=== PATIENT | male | born 1975 | race Hispanic/Latino ===

== ENCOUNTER 2018-05-17 10:51 | Emergency (ER) | payer OTHER ==
--- OUTSIDE RECORDS SUMMARY | 2018-05-17 10:53 | XMS REPORT | Continuity of Care Document ---
:1975 Author Organization Interface Problems Problem Status Onset Classification Date Comments Source Date Reported RADICULOPATHY Active 08/18/19 [place] CERVICAL 17 Land REGION-M54.12/ NECK PAIN-M54.2 M54.12 - Active 04/23/20 [facility] "RADICULOPATHY, 16 SG Bone & CERVICAL REGION Joint GERD (<span Resolved Problem 08/29/2016 [place] ID="[id number]" [place] >Confirmed</span> ) Pain<sup>1</sup> Active Problem 08/29/2016 neck and [place] back [place] Medications Medication Details Route Status Patient Ordering Order Source Instructions Provider Date Acetaminophen 325 2 tab, PO, Q6H, Active MG / Hydrocodone PRN Pain Score 2016 [place] Bitartrate 10 MG 7-10, 0 Refill(s) [place] Oral Tablet [[place] 10/325] Oxycontin 10 mg, 1 tab, No Longer Route: PO, Drug Active 2016 [place] form: ERTAB, Q12H, [place] Dosing Weight 76.364, kg, Start date: 08/25/16 21:00:00 LABELLING MACHINE OPERATOR, Duration: 30 day, Stop date: 09/24/16 9:00:00 CDTNotes: Do not crush or chew. (Same as: OxyContin) Ancef + sodium 1 gm, Route: IVPB, No Longer chloride 0.9% INJ Q8H, Dosing Weight Active 2016 [place] 100 mL 76.364, kg, Start [place] date: 08/25/16 16:00:00 LABELLING MACHINE OPERATOR, Duration: 30 day, Stop date: 09/24/16 8:00:00 CDTNotes: (Same As: Anczehra Kefzol) MEDICATION WASTE Product Size: 1000 mg Product Wasted: ___ mg pneumococcal 0.5 mL, Route: IM, Inactive capsular ONCALL, Start 2016 [place] polysaccharide date: 08/25/16 [facility] type 1 vaccine / 14:53:28 LABELLING MACHINE OPERATOR, Stop pneumococcal date: 09/24/16 capsular 14:48:28 CDT polysaccharide type 10A vaccine / pneumococcal capsular polysaccharide type 11A vaccine / pneumococcal capsular polysaccharide type 12F vaccine / pneumococcal capsular polysacchar Insulin, Aspart, 4 unit, 0.04 mL, Inactive Human Route: SUB-Q, Drug 2016 [place] form: SOLN, [place] Sliding Scale, Dosing Weight 76.364, kg, PRN Blood Glucose Results, Start date: 08/25/16 10:16:00 LABELLING MACHINE OPERATOR, Duration: 30 day, Stop date: 09/24/16 11:15:00 CDTNotes: Roll in palms of hands gently; Do not shake vigorously. (Same as: NovoLOG) "single patient use only" WASTE: F/P - Black; E - Municipal Trash Bin Stable for 28 days at room temperature. Expires in days from Date Phenylephrine 100 microgram, 1 Inactive mL, Route: IV, 2016 [place] Drug form: INJ, [place] Q5Min, Dosing Weight 77.273, kg, PRN Hypotension, Start date: 08/25/16 10:16:00 LABELLING MACHINE OPERATOR, Duration: 30 day, Stop date: 09/24/16 11:15:00 CDTNotes: Same as: Perez-Synephrine Albuterol 0.833 3 mL, Route: NEB, Inactive MG/ML / Drug Form: SOLN, 2016 [place] Ipratropium Dosing Weight [place] 0.167 77.273, kg, MG/ML Inhalant Q20Min, PRN Solution [DuoNeb] Wheezing, call anesthesiologist if wheezing unresolved after 2nd dose., Start date: 08/25/16 10:16:00 LABELLING MACHINE OPERATOR, Duration: 4 doses or times, Stop date: Limited # of timesNotes: (Same as: Duoneb) celecoxib 200 mg, 1 cap, Inactive Route: PO, Drug 2016 [place] form: CAP, ONCE, [place] Dosing Weight 77.273, kg, Start date: 08/25/16 10:16:00 LABELLING MACHINE OPERATOR, Stop date: 08/25/16 10:16:00 CSTNotes: NSAID. Please check indication. Not for seizure. (Same As: CeleBREX) Promethazine 6.25 mg, 0.25 mL, Inactive Route: IM, Drug 2016 [place] form: INJ, ONCE, [place] Dosing Weight 77.273, kg, PRN Nausea & Vomiting, Start date: 08/25/16 10:16:00 CSTNotes: Do not give IV push. (Same as: Phenergan) 72 HR Scopolamine 1 patch, Route: Inactive 0.0139 MG/HR TOP, Drug Form: 2016 [place] Transdermal Patch ERFILM, Dosing [place] Weight 77.273, kg, ONCE, Apply behind ear. Avoid use in elderly., Start date: 08/25/16 10:16:00 LABELLING MACHINE OPERATOR, Stop date: 08/25/16 10:16:00 CSTNotes: Change patch every 72 hours (Same as: Transderm-Scop) Midazolam 1 mg, 1 mL, Route: Inactive IVP, Drug form: 2016 [place] INJ, Q5Min, Dosing [place] Weight 76.364, kg, PRN Anxiety, Start date: 08/25/16 10:16:00 LABELLING MACHINE OPERATOR, Duration: 2 doses or times, Stop date: Limited # of timesNotes: (Same as: Versed) MEDICATION WASTE Product Size: 2 mg Product Wasted: ___ mg Naloxone 0.1 mg, 0.25 mL, Inactive Route: SUB-Q, Drug 2016 [place] form: INJ, Q6H, [place] Dosing Weight 76.364, kg, PRN Itching, Start date: 08/25/16 10:16:00 LABELLING MACHINE OPERATOR, Duration: 30 day, Stop date: 09/24/16 10:15:00 CDTNotes: Same as Narcan Ondansetron 4 mg, 2 mL, Route: Inactive IVP, Drug form: 2016 [place] INJ, ONCE, Dosing [place] Weight 76.364, kg, PRN Nausea & Vomiting, Start date: 08/25/16 10:16:00 CSTNotes: (Same as: Zofran) MEDICATION WASTE Product Size: 4 mg Product Wasted: ___ mg Dexamethasone 4 mg, 1 mL, Route: Inactive IVP, Drug form: 2016 [place] INJ, ONCE, Dosing [place] Weight 76.364, kg, PRN Nausea & Vomiting, Start date: 08/25/16 10:16:00 CSTNotes: Concentration: 4mg/ml Atropine 0.2 mg, 0.5 mL, Inactive Route: IVP, Drug 2016 [place] form: INJ, Q5Min, [place] Dosing Weight 76.364, kg, PRN Other -See Comment, as needed; for symptomatic pulse rate Notes: MEDICATION WASTE Product Size: 0.4 mg Product Wasted: ___ mg Diphenhydramine 12.5 mg, 0.25 mL, Inactive Route: IVP, Drug 2016 [place] form: INJ, Q6H, [place] Dosing Weight 77.273, kg, PRN Itching, Start date: 08/25/16 10:16:00 LABELLING MACHINE OPERATOR, Duration: 1 day, Stop date: 08/26/16 10:15:00 CSTNotes: (Same as: Benadryl) Albuterol 0.83 2.49 mg, 3 mL, Inactive MG/ML Inhalant Route: NEB, Drug 2016 [place] Solution form: SOLN, [place] Q20Min, Dosing Weight 76.364, kg, PRN Wheezing, Priority: STAT, Start date: 08/25/16 10:16:00 LABELLING MACHINE OPERATOR, Duration: 30 day, Stop date: 09/24/16 11:15:00 CDTNotes: SEE RT DOCUMENTATION (Same as: Proventil) Glycopyrrolate 0.2 mg, 1 mL, Inactive Route: IVP, Drug 2016 [place] form: INJ, Q5Min, [place] Dosing Weight 76.364, kg, PRN Bradycardia, Start date: 08/25/16 10:16:00 LABELLING MACHINE OPERATOR, Duration: 3 doses or times, Stop date: Limited # of timesNotes: (Same as: Azael) Ephedrine 5 mg, 1 mL, Route: Inactive IVP, Drug form: 2017 [place] INJ, Q5Min, Dosing [place] Weight 76.364, kg, PRN Low Blood Pressure, Start date: 08/25/16 10:16:00 LABELLING MACHINE OPERATOR, Duration: 30 day, Stop date: 09/24/16 11:15:00 CDTNotes: final concentration 5 mg/mL Flumazenil 0.2 mg, 2 mL, Inactive Route: IVP, Drug 2016 [place] form: INJ, PRN, [place] Dosing Weight 76.364, kg, PRN Benzodiazepine Reversal, Initial dose, Start date: 08/25/16 10:16:00 LABELLING MACHINE OPERATOR, Duration: 30 day, Stop date: 09/24/16 11:15:00 CDTNotes: (Same as: Romazicon) Hydromorphone 0.5 mg, 0.25 mL, Inactive Route: IVP, Drug 2016 [place] form: INJ, Q5Min, [place] Dosing Weight 77.273, kg, PRN Pain Score 7-10, Start date: 08/25/16 10:16:00 LABELLING MACHINE OPERATOR, Duration: 4 doses or times, Stop date: Limited # of timesNotes: Same as Dilaudid 200 ACTUAT 2 puff, Route: Inactive Albuterol 0.09 INHALER, Drug 2016 [place] MG/ACTUAT Metered Form: AERO/A, [place] Dose Inhaler Dosing Weight 76.364, kg, Q5Min, PRN Wheezing, Start date: 08/25/16 10:16:00 LABELLING MACHINE OPERATOR, Duration: 4 doses or times, Stop date: Limited # of timesNotes: Albuterol 90 microgram/inh 8gm HFA WASTE: Aerosol - Return to Pharmacy Same as: Sera Max Calcium Chloride 1,000 mL, Rate: Inactive 0.0014 MEQ/ML / 125 ml/hr, Infuse 2016 [place] Potassium over: 8 hr, Route: [place] Chloride 0.004 IV, Dosing Weight MEQ/ML / Sodium 76.364 kg, Total Chloride 0.103 Volume: 1,000, MEQ/ML / Sodium Start date: Lactate 0.028 08/25/16 10:16:00 MEQ/ML Injectable LABELLING MACHINE OPERATOR, Duration: 30 Solution day, Stop date: 09/24/16 10:15:00 CDT Oxycodone 10 mg, 2 tab, Inactive Route: PO, Drug 2016 [place] form: TAB, ONCE, [place] Dosing Weight 77.273, kg, PRN Pain Score 7-10, Start date: 08/25/16 10:16:00 CSTNotes: (Same as: Roxicodone) Morphine 2 mg, 1 mL, Route: Inactive IVP, Drug form: 2017 [place] INJ, Q5Min, Dosing [place] Weight 76.364, kg, PRN Pain Score 4-6, Start date: 08/25/16 10:16:00 LABELLING MACHINE OPERATOR, Duration: 5 doses or times, Stop date: Limited # of timesNotes: (Same as:MORPhine Sulfate) Acetaminophen 1,000 mg, 2 tab, Inactive Route: PO, Drug 2016 [place] form: TAB, ONCE, [place] Dosing Weight 76.364, kg, PRN Pain Score 1-3, Start date: 08/25/16 10:16:00 LABELLING MACHINE OPERATOR, Duration: 1 doses or times, Stop date: Limited # of timesNotes: Max acetaminophen 4000 mg/day (4 gm/day). (Same as: Tylenol Extra Strength) Hydralazine 10 mg, 0.5 mL, Inactive Route: IVP, Drug 2016 [place] form: INJ, Q20Min, [place] Dosing Weight 77.273, kg, PRN Elevated BP, Start date: 08/25/16 10:16:00 LABELLING MACHINE OPERATOR, Duration: 2 doses or times, Stop date: Limited # of timesNotes: (Same as: Apresoline) Push over 5 minutes Labetalol 10 mg, 2 mL, Inactive Route: IVP, Drug 2016 [place] form: INJ, Q5Min, [place] Dosing Weight 77.273, kg, PRN Elevated BP, Start date: 08/25/16 10:16:00 LABELLING MACHINE OPERATOR, Duration: 5 doses or times, Stop date: Limited # of timesNotes: (Same as: Normodyne, Trandate) Push over 2 minutes Give bolus over 2-3 minutes. Metoprolol 1 mg, 1 mL, Route: Inactive IVP, Drug form: 2016 [place] INJ, Q5Min, Dosing [place] Weight 77.273, kg, PRN Other -See Comment, Start date: 08/25/16 10:16:00 LABELLING MACHINE OPERATOR, Duration: 5 doses or times, Stop date: Limited # of timesNotes: (Same as: Lopressor) Push over 2 minutes ondansetron Route: IV, Drug Inactive (ANES) form: INJ, ONCE, 2017 [place] Stop date: Land 08/25/16 10:15:00 LABELLING MACHINE OPERATOR Acetaminophen 325 2 tab, Route: PO, No Longer MG / Hydrocodone Drug Form: TAB, Active 2016 [place] Bitartrate 10 MG Dosing Weight [place] Oral Tablet 76.364, kg, Q6H, [[place] 10/325] PRN Pain Score 7-10, Start date: 08/25/16 10:08:00 LABELLING MACHINE OPERATOR, Duration: 30 day, Stop date: 09/24/16 10:07:00 CDTNotes: Do not exceed 4gm/day of acetaminophen. (Same as: [place] 325/10) Zofran 4 mg, 2 mL, Route: No Longer IVP, Drug form: Active 2016 [place] INJ, Q6H, Dosing [place] Weight 76.364, kg, PRN Nausea, Start date: 08/25/16 10:07:00 LABELLING MACHINE OPERATOR, Duration: 30 day, Stop date: 09/24/16 10:06:00 CDTNotes: (Same as: Zofran) MEDICATION WASTE Product Size: 4 mg Product Wasted: ___ mg Tylenol 650 mg, 2 tab, No Longer Route: PO, Drug Active 2016 [place] form: TAB, Q6H, [place] Dosing Weight 76.364, kg, PRN For Temp > 101 F, Start date: 08/25/16 10:06:00 LABELLING MACHINE OPERATOR, Duration: 30 day, Stop date: 09/24/16 10:05:00 CDTNotes: Do not exceed 4 gm/day. (Same as: Tylenol) Morphine 2 mg, 1 mL, Route: No Longer IVP, Drug form: Active 2016 [place] INJ, Q2H, Dosing [place] Weight 76.364, kg, PRN Pain Score 7-10, Start date: 08/25/16 10:06:00 LABELLING MACHINE OPERATOR, Duration: 30 day, Stop date: 09/24/16 10:05:00 CDTNotes: (Same as:MORPhine Sulfate) succinylcholine Route: IV, Drug Inactive (ANES) form: INJ, ONCE, 2016 [place] Stop date: 08/25/16 9:02:00 LABELLING MACHINE OPERATOR midazolam (ANES) Route: IV, Drug Inactive form: SOLN, ONCE, 2016 [place] Stop date: Land 08/25/16 9:02:00 LABELLING MACHINE OPERATOR fentaNYL (ANES) Route: IV, Drug Inactive 08/25/ MH form: INJ, ONCE, 2016 [place] Stop date: 08/25/16 9:02:00 LABELLING MACHINE OPERATOR dexamethasone Route: IV, Drug Inactive 08/25/ MH (ANES) form: INJ, ONCE, 2016 [place] Stop date: [facility] 08/25/16 9:02:00 LABELLING MACHINE OPERATOR hydromorphone Route: IV, Drug Inactive 08/25/ MH (ANES) form: INJ, ONCE, 2016 [place] Stop date: [facility] 08/25/16 8:57:00 LABELLING MACHINE OPERATOR propofol (ANES) Route: IV, Drug Inactive 08/25/ MH form: INJ, ONCE, 2016 [place] Stop date: [facility] 08/25/16 8:57:00 LABELLING MACHINE OPERATOR lidocaine (ANES) Route: IV, Drug Inactive 08/25/ MH form: INJ, ONCE, 2016 [place] Stop date: [facility] 08/25/16 8:57:00 LABELLING MACHINE OPERATOR ceFAZolin (ANES) Route: IV, Drug Inactive 08/25/ MH form: INJ, ONCE, 2016 [place] Stop date: [facility] 08/25/16 8:19:00 LABELLING MACHINE OPERATOR propofol (ANES) Route: IV, Drug Inactive 08/25/ MH (ANES) form: INJ, Start 2016 [place] date: 08/25/16 [facility] 8:15:00 LABELLING MACHINE OPERATOR, Stop date: 08/25/16 9:15:00 LABELLING MACHINE OPERATOR Cephalexin 500 MG 500 mg=1 cap, PO, Active Oral Capsule QID, X 5 day, # 20 2017 [place] [Keflex] cap, 0 Refill(s) [place] Carisoprodol 350 350 mg=1 tab, PO, Active MH MG Oral Tablet TID, X 14 day, # 2017 [place] [Soma] 42 tab, 0 [place] Refill(s) LR 1000 mL INJ Route: IV, Total Inactive MH (ANES) Volume: 1,000, 2016 [place] Start date: [facility] 08/25/16 7:45:00 LABELLING MACHINE OPERATOR, Stop date: 08/25/16 8:45:00 LABELLING MACHINE OPERATOR Insulin, Aspart, 2 unit, 0.02 mL, Inactive Human Route: SUB-Q, Drug 2016 [place] form: SOLN, [place] Sliding Scale, Dosing Weight 77.273, kg, PRN Blood Glucose Results, Start date: 08/25/16 6:10:00 LABELLING MACHINE OPERATOR, Duration: 30 day, Stop date: 09/24/16 7:09:00 CDTNotes: Roll in palms of hands gently; Do not shake vigorously. (Same as: NovoLOG) "single patient use only" WASTE: F/P - Black; E - Municipal Trash Bin Stable for 28 days at room temperature. Expires in days from Date Albuterol 0.833 3 mL, Route: NEB, Inactive MG/ML / Drug Form: SOLN, 2017 [place] Ipratropium Dosing Weight [place] 0.167 77.273, kg, ONCE, MG/ML Inhalant PRN Wheezing, Solution Start date: 08/25/16 6:10:00 CSTNotes: (Same as: Joaquin) 200 ACTUAT 2 puff, Route: Inactive Albuterol 0.09 INHALER, Drug 2017 [place] MG/ACTUAT Metered Form: AERO/A, [place] Dose Inhaler Dosing Weight 76.364, kg, Q5Min, PRN Wheezing, Start date: 08/25/16 6:10:00 LABELLING MACHINE OPERATOR, Duration: 4 doses or times, Stop date: Limited # of timesNotes: Albuterol 90 microgram/inh 8gm HFA WASTE: Aerosol - Return to Pharmacy Same as: Ventleila Proventil Calcium Chloride 1,000 mL, Rate: 25 Inactive 0.0014 MEQ/ML / ml/hr, Infuse 2016 [place] Potassium over: 40 hr, [place] Chloride 0.004 Route: IV, Dosing MEQ/ML / Sodium Weight 76.364 kg, Chloride 0.103 Total Volume: MEQ/ML / Sodium 1,000, Start date: Lactate 0.028 08/25/16 6:10:00 MEQ/ML Injectable LABELLING MACHINE OPERATOR, Duration: 30 Solution day, Stop date: 09/24/16 6:09:00 CDT Lactated Ringers 1,000 mL, Rate: No Longer 1,000 mL 125 ml/hr, Infuse Active 2016 [place] over: 8 hr, Route: [place] IV, Dosing Weight 77.273 kg, Total Volume: 1,000, Start date: 08/25/16 6:00:00 LABELLING MACHINE OPERATOR, Duration: 30 day, Stop date: 09/24/16 5:59:00 CDT ceFAZolin 2 gm, 100 mL, Inactive Route: IVPB, Drug 2016 [place] form: INJ, ONCALL, Land Start date: 08/25/16 6:00:00 LABELLING MACHINE OPERATOR, Duration: 1 doses or timesNotes: Same as: Ancef oxyCONTIN 10 mg, 1 tab, No Longer Route: PO, Drug Active 2016 [place] form: ERTAB, Land ONCALL, Start date: 08/25/16 6:00:00 LABELLING MACHINE OPERATOR, Duration: 1 doses or timesNotes: Do not crush or chew. (Same as: OxyContin) Neurontin 600 mg, 2 cap, Inactive Route: PO, Drug 2016 [place] form: CAP, ONCALL, Land Start date: 08/25/16 6:00:00 LABELLING MACHINE OPERATOR, Duration: 1 doses or timesNotes: (Same as: Neurontin) Acetaminophen 325 1 tab, PO, Q4H, Active MG / Hydrocodone PRN Pain, # 30 2017 [place] Bitartrate 10 MG tab, 0 Refill(s) [place] Oral Tablet Omeprazole 20 MG See Instructions, Active Enteric Coated 1 cap PO Daily 2017 [place] Capsule prn, 0 Refill(s) [place] [Prilosec] gabapentin 300 MG 300 mg=1 cap, PO, Active Oral Capsule BID, # 90 cap, 1 2016 [place] Refill(s) [place] diclofenac sodium 75 mg=1 tab, PO, Active 75 mg oral Daily, q hs, # 180 2017 [place] enteric coated, tab, 0 Refill(s) [place] delayed-release tablet Allergies, Adverse Reactions, Alerts Substance Category Reaction Severity Reaction Status Date Comments Source type Reported traMADol<albert Assertion Drug Active [facility] p>1</sup> allergy racing [place] Immunizations Immunization Date Given Site Status Last Comments Source Updated pneumococcal 08/25/2016 Left Deltoid completed Tobin [place] 23-valent vaccine [place] Results Order Name Results Value Reference Date Interpretation Comments Source Range ELECTROLYTE AGAP 11.9 meq/L 10.0 - 08/26 S 20.0 [place] ELECTROLYTE Calcium Lvl 8.3 mg/dL 8.5 - 10.5 08/26 S [place] ELECTROLYTE Sodium Lvl 143 meq/L 135 - 145 08/26 S [place] ELECTROLYTE BUN 16 mg/dL 7 - 22 08/26 S [place] ELECTROLYTE Creatinine 1.14 mg/dL 0.50 - 08/26 MH S Lvl 1.40 /2016 [place] ELECTROLYTE CO2 31 meq/L 24 - 32 08/26 S [place] ELECTROLYTE Glucose Lvl 117 mg/dL 70 - 99 08/26 S [place] ELECTROLYTE eGFR 79 08/26 Result Comment: The eGFR is calculated using the CKD-EPI formula. In most young, healthy individuals the eGFR will be >90 mL/ min/1.73m2. The eGFR declines with age. An eGFR of 60-89 may be normal in mL/min/1.73 /2016 some populations, particularly the elderly, for whom the CKD-EPI formula has not been extensively validated. Use of the eGFR is not recommended in the following populations: [place] m2 [place] Individuals with unstable creatinine concentrations, including patients and those with serious co-morbid conditions. Patients with extremes in muscle mass or diet. The data above are obtained from the National Kidney Disease Education Program (NKDEP) which additionally recommends that when the eGFR is used in patients with extremes of body mass index for purposes of drug dosing, the eGFR should be multiplied by the estimated BMI. ELECTROLYTE Chloride Lvl 104 meq/L 95 - 109 08/26 S [place] ELECTROLYTE Potassium 3.9 meq/L 3.5 - 5.1 08/26 S Lvl [place] HEMATOLOGY Basophils # 0.0 K/CMM 0.0 - 0.2 08/26 [place] HEMATOLOGY Eosinophils 0.0 K/CMM 0.0 - 0.5 / MH # /2017 [place] HEMATOLOGY Monocytes # 1.5 K/CMM 0.0 - 0.8 08/26 [place] HEMATOLOGY Basophils 0.2 % 0.0 - 1.0 08/26 [place] HEMATOLOGY Lymphocytes 1.9 K/CMM 1.0 - 5.5 / MH # /2017 [place] HEMATOLOGY Segs-Bands # 12.2 K/CMM 1.5 - 8.1 08/26 [place] HEMATOLOGY Monocytes 9.8 % 2.0 - 12.0 / /2016 [place] HEMATOLOGY Eosinophils 0.1 % 0.0 - 4.0 / /2016 [place] HEMATOLOGY Lymphocytes 12.0 % 20.0 - 08/26 MH 40.0 /2016 [place] HEMATOLOGY Segs 77.9 % 45.0 - 08/26 MH 75.0 /2016 [place] HEMATOLOGY MCH 27.0 pg 27.0 - 08/26 MH 31.0 /2016 [place] HEMATOLOGY MCV 82.5 fL 80.0 - 08/26 MH 94.0 /2016 [place] HEMATOLOGY MCHC 32.7 g/dL 32.0 - 08/26 MH 36.0 /2016 [place] HEMATOLOGY Hct 40.2 % 42.0 - 08/26 MH 54.0 /2016 [place] HEMATOLOGY RDW 13.8 % 11.5 - 08/26 MH 14.5 /2016 [place] HEMATOLOGY Platelet 210 K/CMM 133 - 450 08/26 [place] HEMATOLOGY MPV 9.3 fL 7.4 - 10.4 08/26 [place] HEMATOLOGY Hgb 13.1 g/dL 14.0 - 08/26 MH 18.0 [place] HEMATOLOGY RBC 4.87 M/CMM 4.70 - 08/26 MH 6.10 /2016 [place] HEMATOLOGY WBC 15.6 K/CMM 3.7 - 10.4 08/26 [place] Fluoroscopy Fluoroscopy No report is required for this exam. 08/25 - assist to 1 assist to - [place] hour DX hour DX Technical component complete. [facility] Electronically Signed by: Kanchan Gautam RT 08/26/16 09:20 FINAL REPORT BLOOD BANK Antibody Negative 08/18 RESULTS Scr [place] (08/18/16 10:32 AM) [facility] BLOOD BANK ABO/Rh O POS 08/18 RESULTS /2016 [place] HEMATOLOGY Segs 62.1 % 45.0 - 08/18 MH 75.0 [place] HEMATOLOGY Lymphocytes 24.4 % 20.0 - 08/18 MH 40.0 [place] HEMATOLOGY Basophils 0.4 % 0.0 - 1.0 08/18 [place] HEMATOLOGY Eosinophils 4.9 % 0.0 - 4.0 08/18 [place] HEMATOLOGY Monocytes 8.2 % 2.0 - 12.0 08/18 [place] HEMATOLOGY Monocytes # 0.8 K/CMM 0.0 - 0.8 08/18 [place] HEMATOLOGY Lymphocytes 2.4 K/CMM 1.0 - 5.5 08/18 MH # [place] HEMATOLOGY Segs-Bands # 6.0 K/CMM 1.5 - 8.1 08/18 [place] HEMATOLOGY Basophils # 0.0 K/CMM 0.0 - 0.2 08/18 [place] HEMATOLOGY Eosinophils 0.5 K/CMM 0.0 - 0.5 08/18 MH # /2016 [place] HEMATOLOGY RBC 5.10 M/CMM 4.70 - 08/18 MH 6.10 /2016 [place] HEMATOLOGY WBC 9.7 K/CMM 3.7 - 10.4 08/18 [place] HEMATOLOGY MCH 27.6 pg 27.0 - 08/18 MH 31.0 [place] HEMATOLOGY MCV 82.1 fL 80.0 - 08/18 MH 94.0 [place] HEMATOLOGY RDW 13.6 % 11.5 - 08/18 MH 14.5 [place] HEMATOLOGY MCHC 33.7 g/dL 32.0 - 08/18 MH 36.0 [place] HEMATOLOGY Platelet 230 K/CMM 133 - 450 08/18 [place] HEMATOLOGY MPV 9.1 fL 7.4 - 10.4 08/18 [place] HEMATOLOGY Hct 41.9 % 42.0 - 08/18 MH 54.0 [place] HEMATOLOGY Hgb 14.1 g/dL 14.0 - 08/18 MH 18.0 [place] Spine Spine MRI of the Cervical Spine Without IV Contrast 07/10 - OPID cervical wo cervical - Bone contrast contrast MRI & Joint MRI History: Right radiculopathy prior fusion Read by: Tatianna Leavitt MD Dictated Date/time: 07/10/16 14:43 Electronically Signed by: Tatianna Leavitt MD 07/10/16 14:56 FINAL REPORT Comparison study: None Technique: The study was performed on a high field magnet Without IV Contrast. Findings: There is mild reversal the cervical lordosis centered at C3-C4. C2-C3: Disc desiccation is noted without posterior disc bulge or protrusion. No central stenosis. Right neuroforamen is patent.. Moderate left facet degeneration. This causes mild left foraminal narrowing. C3-C4: Disc desiccation with mild loss of disc height. Mild posterior spondylosis with bilateral uncovertebral spurring. Moderate left facet degeneration into mild extent on the right. Spur disc complex abuts the ventral cervical cord without compression. Mild to moderate bilateral foraminal narrowing without central stenosis. C4-C5: Disc desiccation with moderate loss of disc height. Mild bilateral uncovertebral spurring and mild bilateral facet degeneration. Mild bilateral foraminal narrowing without central stenosis. C5-C6: Status post anterior interbody fusion with compression plate and screws in place. Fusion appears solid. No central or foraminal stenosis.. C6-C7: Disc desiccation with moderate loss of disc height. Moderate posterior spondylosis with more prominent right paracentrally. Bilateral uncovertebral spurring with mild bilateral facet arthrosis. S pur disc complex does compress the cervical cord especially right paracentrally. Moderate central and severe right and moderate left foraminal stenosis. C7-T1: Disc desiccation without loss of disc height. Minimal posterior central disc bulge without focal protrusion. Mild bilateral facet degeneration. No central or foraminal stenosis. There is at T2-T3 evidence of a 2 to 3 mm broad-based posterior central protrusion mildly effacing the thoracic cord without compression. There is an area of abnormal signal intensity in the central aspect of cervical cord at C3 C5-C6. There is questionable subtle extension inferiorly to C6-C7. 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 Craniocervical junction is normal. Impression: Mild reversal the cervical lordosis centered at C3-C4. Multilevel degenerative disc disease with facet arthrosis as detailed above. Postoperative changes at C5-C6 from anterior interbody fusion with compression plate and screws in place. Fusion appears solid. No central or foraminal narrowing. Disc degeneration at C6-C7 where there is moderate posterior spondylosis with bilateral uncovertebral spurring. Spondylosis is more prominent right paracentrally. Spur disc complex does compress the cer vical cord. Severe right and moderate left foraminal narrowing with moderate central stenosis. Mild posterior spondylosis with bilateral uncovertebral spurring at C3-C4 and C4-C5. Associated facet arthrosis at both levels left greater than right. Moderate bilateral foraminal narrowing at C3-C4 and on the right at C4-C5. Moderate facet degeneration also at C7-T1 where there is a mild posterior disc bulge. Moderate left facet degeneration at C2-C3. 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 Myelomalacia is also a consideration.. Dictation Code : 100 Vital Signs Vital Sign Value Date Comments Source Systolic (mm Hg) 143 08/26/2016 [place] Diastolic (mm Hg) 90 08/26/2016 [place] Heart Rate 71 08/26/2016 [place] Temperature Oral (F) 98.2 F 08/26/2016 [place] Heart Rate 74 08/26/2016 [place] Temperature Oral (F) 97.6 F 08/26/2016 [place] Systolic (mm Hg) 134 08/26/2016 [place] Diastolic (mm Hg) 88 08/26/2016 [place] Temperature Oral (F) 98.1 F 08/26/2016 [place] Heart Rate 75 08/26/2016 [place] Systolic (mm Hg) 123 08/26/2016 [place] Diastolic (mm Hg) 78 08/26/2016 [place] BMI Calculated 27.17 08/25/2016 [place] Weight 76.364 08/25/2016 [place] Height 167.64 cm 08/25/2016 [place] Respitory Rate 16 08/25/2016 [place] Respitory Rate 15 08/25/2016 [place] Respitory Rate 18 08/25/2016 [place] Weight 76.364 08/25/2016 [place] BMI Calculated 27.17 08/25/2016 [place] Height 167.64 cm 08/18/2016 [place] Encounters Location Location Encounter Encounter Reason Attending ADM DC Status Source Details Type Number For Provider Date Date Visit [facility] Outpt Diag [id number] [facility] [place] 07/10 07/11 [facility] /2016 [facility] [id number] [facility] [place] 08/25 08/26 [facility] [place] /2016 [place] Procedures Procedure Code Date Perfomer Comments Source Fusion [id number] 06/21/2004 [place] Fusion [id number] 06/21/2002 [place]
--- OUTSIDE RECORDS SUMMARY | 2018-05-17 10:54 | XMS REPORT | Summary of Care ---
:1975 Author Organization [facility] [place] Encounter Arsenio(JODI) [id number] Date(s): 07/10/16 - 07/10/16 [facility] [place] Discharge Disposition: Home or Self Care Attending Physician: Enrrique Harrison MD Vital Signs No data available for this section Problem List No data available for this section Allergies, Adverse Reactions, Alerts No data available for this section Medications No data available for this section Results No data available for this section Immunizations No data available for this section Procedures No data available for this section Social History No data available for this section Assessment and Plan No data available for this section
--- OUTSIDE RECORDS SUMMARY | 2018-05-17 10:54 | XMS REPORT | Summary of Care ---
:[address] [facility] Address [address], [place] [address]- Encounter [facility]) [id number] Date(s): 08/25/16 - 08/26/[address] [facility] [address] [place] [address]- Discharge Disposition: Home or Self Care Attending Physician: Enrrique Harrison MD Referring Physician: Enrrique Harrison MD Vital Signs Most recent to oldest 1 2 3 [Reference Range]: Height 167.64 cm 167.64 cm (08/25/16 2:01 PM) (08/18/16 10:27 AM) Temperature Oral [96.4-99.1 98.2 DegF 97.6 DegF 98.1 DegF DegF] (08/26/16 7:57 AM) (08/26/16 5:27 AM) (08/25/16 11:26 PM) Blood Pressure [90-140/60-90 143/90 mmHg 134/88 mmHg 123/78 mmHg mmHg] *HI* (08/26/16 5:27 AM) (08/25/16 11:26 PM) (08/26/16 7:57 AM) Respiratory Rate [14-20 BRMIN] 16 BRMIN 15 BRMIN 18 BRMIN (08/25/16 1:55 PM) (08/25/16 1:40 PM) (08/25/16 12:45 PM) Peripheral Pulse Rate [60-100 71 bpm 74 bpm 75 bpm bpm] (08/26/16 7:57 AM) (08/26/16 5:27 AM) (08/25/16 11:26 PM) Weight 76.364 kg 76.364 kg (08/25/16 2:01 PM) (08/25/16 6:10 AM) Body Mass Index 27.17 m2 27.17 m2 (08/25/16 2:01 PM) (08/25/16 6:10 AM) Problem List Condition Effective Dates Status Health Status Informant GERD (gastroesophageal reflux Resolved disease)(Confirmed) Pain(Confirmed)1 Active 1neck and back Allergies, Adverse Reactions, Alerts Substance Reaction Severity Status traMADol1 Active 1heart racing Medications acetaminophen-hydrocodone 325 mg-10 mg oral tablet 1 tab, PO, Q4H, PRN Pain, # 30 tab, 0 Refill(s) Start Date: 08/18/16 Stop Date: 08/23/16 Status: Orderedalbuterol 90 mcg/inh inhalation aerosol 2 puff, Route: INHALER, Drug Form: AERO/A, Dosing Weight 76.364, kg, Q5Min, PRN Wheezing, Start date: 08/25/16 6:10:00 SAMPLER OVENS, Duration: 4 doses or times, Stop date: Limited # of times Notes: Albuterol 90 microgram/inh 8gm HFAWASTE: Aerosol - Return to Pharmacy Same as: Sera Max Start Date: 08/25/16 Stop Date: 08/25/16 Status: Discontinuedalbuterol-ipratropium 2.5-0.5 mg inhalation solution 3 mL, Route: NEB, Drug Form: SOLN, Dosing Weight 77.273, kg, ONCE, PRN Wheezing , Start date: 08/25/16 6:10:00 SAMPLER OVENS Notes: (Same as: Joaquin) Start Date: 08/25/16 Stop Date: 08/25/16 Status: DiscontinuedAncef + sodium chloride 0.9% INJ 100 mL 1 gm, Route: IVPB, Q8H, Dosing Weight 76.364, kg, Start date: 08/25/16 16:00:00 SAMPLER OVENS, Duration: 30 day, Stop date: 09/24/16 8:00:00 CDT Notes: (Same As: Milad Leyva) MEDICATION WASTE Product Size: 1000 mgProduct Wasted: ___ mg Start Date: 08/25/16 Stop Date: 08/26/16 Status: DiscontinuedANES acetaminophen 1,000 mg, 2 tab, Route: PO, Drug form: TAB, ONCE, Dosing Weight 76.364, kg, PRN Pain Score 1-3, Start date: 08/25/16 10:16:00 SAMPLER OVENS, Duration: 1 doses or times, Stop date: Limited # of times Notes: Max acetaminophen 4000 mg/day (4 gm/day). (Same as: Tylenol Extra Strength) Start Date: 08/25/16 Stop Date: 08/25/16 Status: DiscontinuedANES albuterol 0.083% inhalation solution 2.49 mg, 3 mL, Route: NEB, Drug form: SOLN, Q20Min, Dosing Weight 76.364, kg, PRN Wheezing, Priority: STAT, Start date: 08/25/16 10:16:00 SAMPLER OVENS, Duration: 30 day, Stop date: 09/24/16 11:15:00 CDT Notes: SEE RT DOCUMENTATION (Same as: Sera) Start Date: 08/25/16 Stop Date: 08/25/16 Status: DiscontinuedANES albuterol 90 mcg/inh inhalation aerosol 2 puff, Route: INHALER, Drug Form: AERO/A, Dosing Weight 76.364, kg, Q5Min, PRN Wheezing, Start date: 08/25/16 10:16:00 SAMPLER OVENS, Duration: 4 doses or times, Stop date: Limited # of times Notes: Albuterol 90 microgram/inh 8gm HFAWASTE: Aerosol - Return to Pharmacy Same as: Sera Max Start Date: 08/25/16 Stop Date: 08/25/16 Status: DiscontinuedANES atropine 0.2 mg, 0.5 mL, Route: IVP, Drug form: INJ, Q5Min, Dosing Weight 76.364, kg, PRN Other -See Comment,as needed; for symptomatic pulse rate < 80% of mean 50 BPM, Start date: 08/25/16 10:16:00 SAMPLER OVENS, Duration: 30 day, Stop date: 11:15:00 CDT Notes: MEDICATION WASTE Product Size: 0.4 mgProduct Wasted: ___ mg Start Date: 08/25/16 Stop Date: 08/25/16 Status: DiscontinuedANES dexamethasone 4 mg, 1 mL, Route: IVP, Drug form: INJ, ONCE, Dosing Weight 76.364, kg, PRN Nausea & Vomiting, Start date: 08/25/16 10:16:00 SAMPLER OVENS Notes: Concentration: 4mg/ml Start Date: 08/25/16 Stop Date: 08/25/16 Status: DiscontinuedANES diphenhydrAMINE 12.5 mg, 0.25 mL, Route: IVP, Drug form: INJ, Q6H, Dosing Weight 77.273, kg, PRN Itching, Start date: 08/25/16 10:16:00 SAMPLER OVENS, Duration: 1 day, Stop date: 02/04 10:15:00 SAMPLER OVENS Notes: (Same as: Benadryl) Start Date: 08/25/16 Stop Date: 08/25/16 Status: DiscontinuedANES ePHEDrine 5 mg, 1 mL, Route: IVP, Drug form: INJ, Q5Min, Dosing Weight 76.364, kg, PRN Low Blood Pressure, Start date: 08/25/16 10:16:00 SAMPLER OVENS, Duration: 30 day, Stop date: 09/24/16 11:15:00 CDT Notes: final concentration 5 mg/mL Start Date: 08/25/16 Stop Date: 08/25/16 Status: DiscontinuedANES flumazenil 0.2 mg, 2 mL, Route: IVP, Drug form: INJ, PRN, Dosing Weight 76.364, kg, PRN Benzodiazepine Reversal, Initial dose, Start date: 08/25/16 10:16:00 SAMPLER OVENS, Duration: 30 day, Stop date: 09/24/16 11:15:00 CDT Notes: (Same as: Romazicon) Start Date: 08/25/16 Stop Date: 08/25/16 Status: DiscontinuedANES glycopyrrolate 0.2 mg, 1 mL, Route: IVP, Drug form: INJ, Q5Min, Dosing Weight 76.364, kg, PRN Bradycardia, Start date: 08/25/16 10:16:00 SAMPLER OVENS, Duration: 3 doses or times, Stop date: Limited # of times Notes: (Same as: Robinul) Start Date: 08/25/16 Stop Date: 08/25/16 Status: DiscontinuedANES hydrALAZINE 10 mg, 0.5 mL, Route: IVP, Drug form: INJ, Q20Min, Dosing Weight 77.273, kg, PRN Elevated BP, Start date: 08/25/16 10:16:00 SAMPLER OVENS, Duration: 2 doses or times, Stop date: Limited # of times Notes: (Same as: Apresoline)Push over 5 minutes Start Date: 08/25/16 Stop Date: 08/25/16 Status: DiscontinuedANES HYDROmorphone 0.5 mg, 0.25 mL, Route: IVP, Drug form: INJ, Q5Min, Dosing Weight 77.273, kg, PRN Pain Score 7-10, Start date: 08/25/16 10:16:00 SAMPLER OVENS, Duration: 4 doses or times, Stop date: Limited # of times Notes: Same as Dilaudid Start Date: 08/25/16 Stop Date: 08/25/16 Status: DiscontinuedANES labetalol 10 mg, 2 mL, Route: IVP, Drug form: INJ, Q5Min, Dosing Weight 77.273, kg, PRN Elevated BP, Start date: 08/25/16 10:16:00 SAMPLER OVENS, Duration: 5 doses or times, Stop date: Limited # of times Notes: (Same as: Normodyne, Trandate)Push over 2 minutes Give bolus over 2-3 minutes. Start Date: 08/25/16 Stop Date: 08/25/16 Status: DiscontinuedANES metoprolol 1 mg, 1 mL, Route: IVP, Drug form: INJ, Q5Min, Dosing Weight 77.273, kg, PRN Other -See Comment, Start date: 08/25/16 10:16:00 SAMPLER OVENS, Duration: 5 doses or times, Stop date: Limited # of times Notes: (Same as: Lopressor)Push over 2 minutes Start Date: 08/25/16 Stop Date: 08/25/16 Status: DiscontinuedANES midazolam 1 mg, 1 mL, Route: IVP, Drug form: INJ, Q5Min, Dosing Weight 76.364, kg, PRN Anxiety, Start date: 08/25/16 10:16:00 SAMPLER OVENS, Duration: 2 doses or times, Stop date: Limited # of times Notes: (Same as: Versed) MEDICATION WASTE Product Size: 2 mgProduct Wasted: ___ mg Start Date: 08/25/16 Stop Date: 08/25/16 Status: DiscontinuedANES morphine Sulfate 2 mg, 1 mL, Route: IVP, Drug form: INJ, Q5Min, Dosing Weight 76.364, kg, PRN Pain Score 4-6, Start date: 08/25/16 10:16:00 SAMPLER OVENS, Duration: 5 doses or times, Stop date: Limited # of times Notes: (Same as:MORPhine Sulfate) Start Date: 08/25/16 Stop Date: 08/25/16 Status: DiscontinuedANES naloxone 0.1 mg, 0.25 mL, Route: SUB-Q, Drug form: INJ, Q6H, Dosing Weight 76.364, kg, PRN Itching, Start date: 08/25/16 10:16:00 SAMPLER OVENS, Duration: 30 day, Stop date: 12/05 10:15:00 CDT Notes: Same as Narcan Start Date: 08/25/16 Stop Date: 08/25/16 Status: DiscontinuedANES naloxone 0.4 mg, 1 mL, Route: IVP, Drug form: INJ, Q2MIN, Dosing Weight 76.364, kg, PRN Narcotic Reversal, Start date: 08/25/16 10:16:00 SAMPLER OVENS, Duration: 8 doses or times , Stop date: Limited # of times Notes: Same as Narcan Start Date: 08/25/16 Stop Date: 08/25/16 Status: DiscontinuedANES ondansetron 4 mg, 2 mL, Route: IVP, Drug form: INJ, ONCE, Dosing Weight 76.364, kg, PRN Nausea & Vomiting, Start date: 08/25/16 10:16:00 SAMPLER OVENS Notes: (Same as: Ivan) MEDICATION WASTE Product Size: 4 mgProduct Wasted: ___ mg Start Date: 08/25/16 Stop Date: 08/25/16 Status: DiscontinuedANES oxyCODONE 10 mg, 2 tab, Route: PO, Drug form: TAB, ONCE, Dosing Weight 77.273, kg, PRN Pain Score 7-10, Start date: 08/25/16 10:16:00 SAMPLER OVENS Notes: (Same as: Roxicodone) Start Date: 08/25/16 Stop Date: 08/25/16 Status: CompletedANES oxyCODONE 5 mg, 1 tab, Route: PO, Drug form: TAB, ONCE, Dosing Weight 77.273, kg, PRN Pain Score 4-6, Start date: 08/25/16 10:16:00 SAMPLER OVENS Notes: (Same as: Roxicodone) Start Date: 08/25/16 Stop Date: 08/25/16 Status: DiscontinuedANES promethazine 6.25 mg, 0.25 mL, Route: IM, Drug form: INJ, ONCE, Dosing Weight 77.273, kg, PRN Nausea & Vomiting, Start date: 08/25/16 10:16:00 SAMPLER OVENS Notes: Do not give IV push. (Same as: Phenergan) Start Date: 08/25/16 Stop Date: 08/25/16 Status: DiscontinuedANES scopolamine 1.5 mg transdermal film 1 patch, Route: TOP, Drug Form: ERFILM, Dosing Weight 77.273, kg, ONCE, Apply behind ear. Avoid usein elderly., Start date: 08/25/16 10:16:00 SAMPLER OVENS, Stop date : 08/25/16 10:16:00 SAMPLER OVENS Notes: Change patch every 72 hours (Same as: Transderm-Scop) Start Date: 08/25/16 Stop Date: 08/25/16 Status: DiscontinuedceFAZolin 2 gm, 100 mL, Route: IVPB, Drug form: INJ, ONCALL, Start date: 08/25/16 6:00:00 SAMPLER OVENS, Duration: 1 doses or times Notes: Same as: Ancef Start Date: 08/25/16 Stop Date: 08/25/16 Status: CompletedceFAZolin (ANES) Route: IV, Drug form: INJ, ONCE, Stop date: 08/25/16 8:19:00 SAMPLER OVENS Start Date: 08/25/16 Stop Date: 08/25/16 Status: Completedcelecoxib 200 mg, 1 cap, Route: PO, Drug form: CAP, ONCE, Dosing Weight 77.273, kg, Start date: 08/25/16 10:16:00 SAMPLER OVENS, Stop date: 08/25/16 10:16:00 SAMPLER OVENS Notes: NSAID. Please check indication. Not for seizure. (Same As: CeleBREX) Start Date: 08/25/16 Stop Date: 08/25/16 Status: Discontinueddexamethasone (ANES) Route: IV, Drug form: INJ, ONCE, Stop date: 08/25/16 9:02:00 SAMPLER OVENS Start Date: 08/25/16 Stop Date: 08/25/16 Status: Completeddiclofenac sodium 75 mg oral enteric coated, delayed-release tablet 75 mg=1 tab, PO, Daily, q hs, # 180 tab, 0 Refill(s) Start Date: 08/18/16 Status: OrderedDuoNeb inhalation solution 3 mL, Route: NEB, Drug Form: SOLN, Dosing Weight 77.273, kg, Q20Min, PRN Wheezing, call anesthesiologist if wheezing unresolved after 2nd dose., Start date: 08/25/16 10:16:00 SAMPLER OVENS, Duration: 4 doses ortimes, Stop date: Limited # of times Notes: (Same as: Duoneb) Start Date: 08/25/16 Stop Date: 08/25/16 Status: DiscontinuedfentaNYL (ANES) Route: IV, Drug form: INJ, ONCE, Stop date: 08/25/16 9:02:00 SAMPLER OVENS Start Date: 08/25/16 Stop Date: 08/25/16 Status: Completedgabapentin 300 mg oral capsule 300 mg=1 cap, PO, BID, # 90 cap, 1 Refill(s) Start Date: 08/18/16 Status: Orderedhydromorphone (ANES) Route: IV, Drug form: INJ, ONCE, Stop date: 08/25/16 8:57:00 SAMPLER OVENS Start Date: 08/25/16 Stop Date: 08/25/16 Status: Completedinsulin aspart 4 unit, 0.04 mL, Route: SUB-Q, Drug form: SOLN, Sliding Scale, Dosing Weight 76.364, kg, PRN Blood Glucose Results, Start date: 08/25/16 10:16:00 SAMPLER OVENS, Duration: 30 day, Stop date: 09/24/16 11:15:00 CDT Notes: Roll in palms of hands gently; Do not shake vigorously. (Same as: NovoLOG)"single patient use only"WASTE: F/P - Black; E - Municipal Trash Bin Stable for 28 days at room temperature.Expires in days from Date Start Date: 08/25/16 Stop Date: 08/25/16 Status: Discontinuedinsulin aspart 3 unit, 0.03 mL, Route: SUB-Q, Drug form: SOLN, Sliding Scale, Dosing Weight 76.364, kg, PRN Blood Glucose Results, Start date: 08/25/16 10:16:00 SAMPLER OVENS, Duration: 30 day, Stop date: 09/24/16 11:15:00 CDT Notes: Roll in palms of hands gently; Do not shake vigorously. (Same as: NovoLOG)"single patient use only"WASTE: F/P - Black; E - Municipal Trash Bin Stable for 28 days at room temperature.Expires in days from Date Start Date: 08/25/16 Stop Date: 08/25/16 Status: Discontinuedinsulin aspart 5 unit, 0.05 mL, Route: SUB-Q, Drug form: SOLN, Sliding Scale, Dosing Weight 76.364, kg, PRN Blood Glucose Results, Start date: 08/25/16 10:16:00 SAMPLER OVENS, Duration: 30 day, Stop date: 09/24/16 11:15:00 CDT Notes: Roll in palms of hands gently; Do not shake vigorously. (Same as: NovoLOG)"single patient use only"WASTE: F/P - Black; E - Municipal Trash Bin Stable for 28 days at room temperature.Expires in days from Date Start Date: 08/25/16 Stop Date: 08/25/16 Status: Discontinuedinsulin aspart 2 unit, 0.02 mL, Route: SUB-Q, Drug form: SOLN, Sliding Scale, Dosing Weight 76.364, kg, PRN Blood Glucose Results, Start date: 08/25/16 10:16:00 SAMPLER OVENS, Duration: 30 day, Stop date: 09/24/16 11:15:00 CDT Notes: Roll in palms of hands gently; Do not shake vigorously. (Same as: NovoLOG)"single patient use only"WASTE: F/P - Black; E - Municipal Trash Bin Stable for 28 days at room temperature.Expires in days from Date Start Date: 08/25/16 Stop Date: 08/25/16 Status: Discontinuedinsulin aspart 1 unit, 0.01 mL, Route: SUB-Q, Drug form: SOLN, Sliding Scale, Dosing Weight 76.364, kg, PRN Blood Glucose Results, Start date: 08/25/16 10:16:00 SAMPLER OVENS, Duration: 30 day, Stop date: 09/24/16 11:15:00 CDT Notes: Roll in palms of hands gently; Do not shake vigorously. (Same as: NovoLOG)"single patient use only"WASTE: F/P - Black; E - Municipal Trash Bin Stable for 28 days at room temperature.Expires in days from Date Start Date: 08/25/16 Stop Date: 08/25/16 Status: Discontinuedinsulin aspart 2 unit, 0.02 mL, Route: SUB-Q, Drug form: SOLN, Sliding Scale, Dosing Weight 77.273, kg, PRN Blood Glucose Results, Start date: 08/25/16 6:10:00 SAMPLER OVENS, Duration: 30 day, Stop date: 09/24/16 7:09:00 CDT Notes: Roll in palms of hands gently; Do not shake vigorously. (Same as: NovoLOG)"single patient use only"WASTE: F/P - Black; E - Municipal Trash Bin Stable for 28 days at room temperature.Expires in days from Date Start Date: 08/25/16 Stop Date: 08/25/16 Status: Discontinuedinsulin aspart 3 unit, 0.03 mL, Route: SUB-Q, Drug form: SOLN, Sliding Scale, Dosing Weight 77.273, kg, PRN Blood Glucose Results, Start date: 08/25/16 6:10:00 SAMPLER OVENS, Duration: 30 day, Stop date: 09/24/16 7:09:00 CDT Notes: Roll in palms of hands gently; Do not shake vigorously. (Same as: NovoLOG)"single patient use only"WASTE: F/P - Black; E - Municipal Trash Bin Stable for 28 days at room temperature.Expires in days from Date Start Date: 08/25/16 Stop Date: 08/25/16 Status: Discontinuedinsulin aspart 1 unit, 0.01 mL, Route: SUB-Q, Drug form: SOLN, Sliding Scale, Dosing Weight 77.273, kg, PRN Blood Glucose Results, Start date: 08/25/16 6:10:00 SAMPLER OVENS, Duration: 30 day, Stop date: 09/24/16 7:09:00 CDT Notes: Roll in palms of hands gently; Do not shake vigorously. (Same as: NovoLOG)"single patient use only"WASTE: F/P - Black; E - Municipal Trash Bin Stable for 28 days at room temperature.Expires in days from Date Start Date: 08/25/16 Stop Date: 08/25/16 Status: Discontinuedinsulin aspart 4 unit, 0.04 mL, Route: SUB-Q, Drug form: SOLN, Sliding Scale, Dosing Weight 77.273, kg, PRN Blood Glucose Results, Start date: 08/25/16 6:10:00 SAMPLER OVENS, Duration: 30 day, Stop date: 09/24/16 7:09:00 CDT Notes: Roll in palms of hands gently; Do not shake vigorously. (Same as: NovoLOG)"single patient use only"WASTE: F/P - Black; E - Municipal Trash Bin Stable for 28 days at room temperature.Expires in days from Date Start Date: 08/25/16 Stop Date: 08/25/16 Status: Discontinuedinsulin aspart 5 unit, 0.05 mL, Route: SUB-Q, Drug form: SOLN, Sliding Scale, Dosing Weight 77.273, kg, PRN Blood Glucose Results, Start date: 08/25/16 6:10:00 SAMPLER OVENS, Duration: 30 day, Stop date: 09/24/16 7:09:00 CDT Notes: Roll in palms of hands gently; Do not shake vigorously. (Same as: NovoLOG)"single patient use only"WASTE: F/P - Black; E - Municipal Trash Bin Stable for 28 days at room temperature.Expires in days from Date Start Date: 08/25/16 Stop Date: 08/25/16 Status: DiscontinuedKeflex 500 mg oral capsule 500 mg=1 cap, PO, QID, X 5 day, # 20 cap, 0 Refill(s) Start Date: 08/25/16 Stop Date: 08/30/16 Status: OrderedLactated Ringers 1,000 mL 1,000 mL, Rate: 125 ml/hr, Infuse over: 8 hr, Route: IV, Dosing Weight 76.364 kg , Total Volume: 1,000, Start date: 08/25/16 10:16:00 SAMPLER OVENS, Duration: 30 day, Stop date: 09/24/16 10:15:00 CDT Start Date: 08/25/16 Stop Date: 08/25/16 Status: DiscontinuedLactated Ringers 1,000 mL 1,000 mL, Rate: 25 ml/hr, Infuse over: 40 hr, Route: IV, Dosing Weight 76.364 kg , Total Volume: 1,000, Start date: 08/25/16 6:10:00 SAMPLER OVENS, Duration: 30 day, Stop date: 09/24/16 6:09:00 CDT Start Date: 08/25/16 Stop Date: 08/25/16 Status: DiscontinuedLactated Ringers 1,000 mL 1,000 mL, Rate: 125 ml/hr, Infuse over: 8 hr, Route: IV, Dosing Weight 77.273 kg , Total Volume: 1,000, Start date: 08/25/16 6:00:00 SAMPLER OVENS, Duration: 30 day, Stop date: 09/24/16 5:59:00 CDT Start Date: 08/25/16 Stop Date: 08/26/16 Status: Discontinuedlidocaine (ANES) Route: IV, Drug form: INJ, ONCE, Stop date: 08/25/16 8:57:00 SAMPLER OVENS Start Date: 08/25/16 Stop Date: 08/25/16 Status: CompletedLR 1000 mL INJ (ANES) Route: IV, Total Volume: 1,000, Start date: 08/25/16 7:45:00 SAMPLER OVENS, Stop date: 01/04 8:45:00 SAMPLER OVENS Start Date: 08/25/16 Stop Date: 08/25/16 Status: Completedmidazolam (ANES) Route: IV, Drug form: SOLN, ONCE, Stop date: 08/25/16 9:02:00 SAMPLER OVENS Start Date: 08/25/16 Stop Date: 08/25/16 Status: Completedmorphine Sulfate 2 mg, 1 mL, Route: IVP, Drug form: INJ, Q2H, Dosing Weight 76.364, kg, PRN Pain Score 7-10, Start date: 08/25/16 10:06:00 SAMPLER OVENS, Duration: 30 day, Stop date: 12/05 10:05:00 CDT Notes: (Same as:MORPhine Sulfate) Start Date: 08/25/16 Stop Date: 08/26/16 Status: DiscontinuedNeurontin 600 mg, 2 cap, Route: PO, Drug form: CAP, ONCALL, Start date: 08/25/16 6:00:00 SAMPLER OVENS, Duration: 1 doses or times Notes: (Same as: Neurontin) Start Date: 08/25/16 Stop Date: 08/25/16 Status: CompletedNorco 10/325 oral tablet 2 tab, Route: PO, Drug Form: TAB, Dosing Weight 76.364, kg, Q6H, PRN Pain Score 7-10, Start date: 08/25/16 10:08:00 SAMPLER OVENS, Duration: 30 day, Stop date: 09/24/16 10:07:00 CDT Notes: Do not exceed 4gm/day of acetaminophen. (Same as: Milmine 325/10) Start Date: 08/25/16 Stop Date: 08/26/16 Status: DiscontinuedNorco 10/325 oral tablet 2 tab, PO, Q6H, PRN Pain Score 7-10, 0 Refill(s) Start Date: 08/26/16 Status: Orderedondansetron (ANES) Route: IV, Drug form: INJ, ONCE, Stop date: 08/25/16 10:15:00 SAMPLER OVENS Start Date: 08/25/16 Stop Date: 08/25/16 Status: CompletedoxyCONTIN 10 mg, 1 tab, Route: PO, Drug form: ERTAB, ONCALL, Start date: 08/25/16 6:00:00 SAMPLER OVENS, Duration: 1 doses or times Notes: Do not crush or chew.(Same as: OxyContin) Start Date: 08/25/16 Stop Date: 08/26/16 Status: DiscontinuedoxyCONTIN 10 mg, 1 tab, Route: PO, Drug form: ERTAB, Q12H, Dosing Weight 76.364, kg, Start date: 08/25/16 21:00:00 SAMPLER OVENS, Duration: 30 day, Stop date: 09/24/16 9:00: 00 CDT Notes: Do not crush or chew.(Same as: OxyContin) Start Date: 08/25/16 Stop Date: 08/26/16 Status: Discontinuedphenylephrine 100 microgram, 1 mL, Route: IV, Drug form: INJ, Q5Min, Dosing Weight 77.273, kg , PRN Hypotension, Start date: 08/25/16 10:16:00 SAMPLER OVENS, Duration: 30 day, Stop date: 09/24/16 11:15:00 CDT Notes: Same as: Perez-Synephrine Start Date: 08/25/16 Stop Date: 08/25/16 Status: Discontinuedpneumococcal 23-valent vaccine 0.5 mL, Route: IM, ONCALL, Start date: 08/25/16 14:53:28 SAMPLER OVENS, Stop date: 14:48:28 CDT Start Date: 08/25/16 Stop Date: 08/25/16 Status: DiscontinuedPrilosec 20 mg oral delayed release capsule See Instructions, 1 cap PO Daily prn, 0 Refill(s) Start Date: 08/18/16 Status: Orderedpropofol (ANES) Route: IV, Drug form: INJ, ONCE, Stop date: 08/25/16 8:57:00 SAMPLER OVENS Start Date: 08/25/16 Stop Date: 08/25/16 Status: Completedpropofol (ANES) (ANES) Route: IV, Drug form: INJ, Start date: 08/25/16 8:15:00 SAMPLER OVENS, Stop date: 9:15:00 SAMPLER OVENS Start Date: 08/25/16 Stop Date: 08/25/16 Status: CompletedSoma 350 mg oral tablet 350 mg=1 tab, PO, TID, X 14 day, # 42 tab, 0 Refill(s) Start Date: 08/25/16 Stop Date: 09/08/16 Status: Orderedsuccinylcholine (ANES) Route: IV, Drug form: INJ, ONCE, Stop date: 08/25/16 9:02:00 SAMPLER OVENS Start Date: 08/25/16 Stop Date: 08/25/16 Status: CompletedTylenol 650 mg, 2 tab, Route: PO, Drug form: TAB, Q6H, Dosing Weight 76.364, kg, PRN For Temp > 101 F, Start date: 08/25/16 10:06:00 SAMPLER OVENS, Duration: 30 day, Stop date : 09/24/16 10:05:00 CDT Notes: Do not exceed 4 gm/day. (Same as: Tylenol) Start Date: 08/25/16 Stop Date: 08/26/16 Status: DiscontinuedZofran 4 mg, 2 mL, Route: IVP, Drug form: INJ, Q6H, Dosing Weight 76.364, kg, PRN Nausea, Start date: 08/25/16 10:07:00 SAMPLER OVENS, Duration: 30 day, Stop date: 10:06:00 CDT Notes: (Same as: Zofran) MEDICATION WASTE Product Size: 4 mgProduct Wasted: ___ mg Start Date: 08/25/16 Stop Date: 08/26/16 Status: Discontinued Results BLOOD BANK RESULTS Most recent to oldest [Reference Range]: 1 2 ABO/Rh O POS *Unknown* (08/18/16 10:32 AM) Antibody Scrn Negative (08/18/16 10:32 AM) ELECTROLYTES Most recent to oldest [Reference Range]: 1 2 Sodium Lvl [135-145 mEq/L] 143 mEq/L (08/26/16 4:43 AM) Potassium Lvl [3.5-5.1 mEq/L] 3.9 mEq/L (08/26/16 4:43 AM) Chloride Lvl [95-109 mEq/L] 104 mEq/L (08/26/16 4:43 AM) CO2 [24-32 mEq/L] 31 mEq/L (08/26/16 4:43 AM) AGAP [10.0-20.0 mEq/L] 11.9 mEq/L (08/26/16 4:43 AM) CHEM PANEL Most recent to oldest [Reference Range]: 1 2 Creatinine Lvl [0.50-1.40 mg/dL] 1.14 mg/dL (08/26/16 4:43 AM) eGFR 79 mL/min/1.73m2 1 *NA* (08/26/16 4:43 AM) BUN [7-22 mg/dL] 16 mg/dL (08/26/16 4:43 AM) Glucose Lvl [70-99 mg/dL] 117 mg/dL *HI* (08/26/16 4:43 AM) Calcium Lvl [8.5-10.5 mg/dL] 8.3 mg/dL *LOW* (08/26/16 4:43 AM) 1Result Comment: The eGFR is calculated using the CKD-EPI formula. In most young , healthy individualsthe eGFR will be >90 mL/min/1.73m2. The eGFR declines with age. An eGFR of 60-89 may be normal in some populations, particularly the elderly, for whom the CKD-EPI formula has not been extensively validated. Use of the eGFR is not recommended in the following populations: Individuals with unstable creatinine concentrations, including patients and those with serious co-morbid conditions. Patients with extremes in muscle mass or diet. The data above are obtained from the National Kid[employer] Disease Education Program ( NKDEP) which additionally recommends that when the eGFR is used in patients with extremes of body mass index for purposesof drug dosing, the eGFR should be multiplied by the estimated BMI.HEMATOLOGY Most recent to oldest [Reference Range]: 1 2 WBC [3.7-10.4 K/CMM] 15.6 K/CMM 9.7 K/CMM *HI* (08/18/16 10:30 AM) (08/26/16 4:43 AM) RBC [4.70-6.10 M/CMM] 4.87 M/CMM 5.10 M/CMM (08/26/16 4:43 AM) (08/18/16 10:30 AM) Hgb [14.0-18.0 g/dL] 13.1 g/dL 14.1 g/dL *LOW* (08/18/16 10:30 AM) (08/26/16 4:43 AM) Hct [42.0-54.0 %] 40.2 % 41.9 % *LOW* *LOW* (08/26/16 4:43 AM) (08/18/16 10:30 AM) MCV [80.0-94.0 fL] 82.5 fL 82.1 fL (08/26/16 4:43 AM) (08/18/16 10:30 AM) MCH [27.0-31.0 pg] 27.0 pg 27.6 pg (08/26/16 4:43 AM) (08/18/16 10:30 AM) MCHC [32.0-36.0 g/dL] 32.7 g/dL 33.7 g/dL (08/26/16 4:43 AM) (08/18/16 10:30 AM) RDW [11.5-14.5 %] 13.8 % 13.6 % (08/26/16 4:43 AM) (08/18/16 10:30 AM) Platelet [133-450 K/CMM] 210 K/CMM 230 K/CMM (08/26/16 4:43 AM) (08/18/16 10:30 AM) MPV [7.4-10.4 fL] 9.3 fL 9.1 fL (08/26/16 4:43 AM) (08/18/16 10:30 AM) Segs [45.0-75.0 %] 77.9 % 62.1 % *HI* (08/18/16 10:30 AM) (08/26/16 4:43 AM) Lymphocytes [20.0-40.0 %] 12.0 % 24.4 % *LOW* (08/18/16 10:30 AM) (08/26/16 4:43 AM) Monocytes [2.0-12.0 %] 9.8 % 8.2 % (08/26/16 4:43 AM) (08/18/16 10:30 AM) Eosinophils [0.0-4.0 %] 0.1 % 4.9 % (08/26/16 4:43 AM) *HI* (08/18/16 10:30 AM) Basophils [0.0-1.0 %] 0.2 % 0.4 % (08/26/16 4:43 AM) (08/18/16 10:30 AM) Segs-Bands # [1.5-8.1 K/CMM] 12.2 K/CMM 6.0 K/CMM *HI* (08/18/16 10:30 AM) (08/26/16 4:43 AM) Lymphocytes # [1.0-5.5 K/CMM] 1.9 K/CMM 2.4 K/CMM (08/26/16 4:43 AM) (08/18/16 10:30 AM) Monocytes # [0.0-0.8 K/CMM] 1.5 K/CMM 0.8 K/CMM *HI* (08/18/16 10:30 AM) (08/26/16 4:43 AM) Eosinophils # [0.0-0.5 K/CMM] 0.0 K/CMM 0.5 K/CMM (08/26/16 4:43 AM) (08/18/16 10:30 AM) Basophils # [0.0-0.2 K/CMM] 0.0 K/CMM 0.0 K/CMM (08/26/16 4:43 AM) (08/18/16 10:30 AM) Immunizations Given and Recorded Vaccine Date Status Refusal Reason pneumococcal 23-valent vaccine 08/25/16 Given Procedures Procedure Date Related Diagnosis Body Site Fusion 2005 Fusion 2002 Social History Social History Type Response Substance Abuse Use: None. Sexual Sexually active: Yes. Exercise Exercise duration: 0. Employment/School Status: Employed. Alcohol Current, Type Beer. Frequency: 1-2 times per week. Smoking Status Current some day smoker; Type: Cigarettes; Tobacco use per day: 1; Previous treatment: None; Ready to change: Yes; Concerns about tobacco use in household: No; Exposure to Tobacco Smoke occasional smoker; Cigarette Smoking Last 365 Days Yes; Reg Smoking Cessation Counseling No1 17 cigarettes per week Assessment and Plan No data available for this section
[2018-05-17 11:53] LABS: Urine Blood NEGATIVE (NEG); Urine Glucose 1+ (NEG); Urine Protein NEGATIVE (NEG)
[2018-05-17] MEDS ORDERED: NA CHLORIDE 0.9% 1,000 ML ONE (11:56)
--- NOTE | 2018-05-17 12:12 | RAD REPORT ---
EXAM DESCRIPTION: CT - Stone Protocol - 05/17/2018 11:53 am CLINICAL HISTORY: Right-sided abdominal and flank pain, dysuria COMPARISON: CT imaging October 2016 TECHNIQUE: Axial 5 mm thick images were obtained without oral or IV contrast. The [id number] span s the entirety of the system including uppermost abdomen and lung bases. All CT scans are performed using dose optimization technique as appropriate and may include automated exposure control or mA/KV adjustment according to patient size. FINDINGS: No hydronephrosis is present and no obstructing ureteral calculi. No suspicious renal mass es. Isodense masses and pyelonephritis are not excluded on a stone protocol CT scan. No urinary bladd er suspicious finding. Imaged portions of the liver, spleen and pancreas show no suspicious findings on non-contrast imaging . No gallbladder or biliary tree abnormality identified. No significant adrenal finding. No suspicious bowel findings. No hernia, mass or bulky lymphadenopathy noted. No free air, free fluid or inflammatory stranding. St randing in the tissues at the rectus muscle insertion to the pubic symphysis may reflect old surgery or old injury. This is not clearly different from October 2016. Larger size to the inferior margin right rectus muscle also unchanged. Disc and bone degenerative changes are present. Patient has extensive lower lumbar surgical change. N o acute components identified. IMPRESSION: No hydronephrosis, obstructing calculus or other acute finding. Isodense masses and pyelonephritis are not excluded on stone protocol technique. No other significant or suspicious finding. Above detailed findings are not clearly different from 2016.
[2018-05-17 12:25] LABS: Absolute Lymphocytes (CBC) 1.4 K/uL (0.7-4.9); Absolute Monocytes 0.8 K/uL (0.1-1.3); Absolute Neutrophil 7.2 K/uL (1.8-8.0); Basophils % 0.4 % (0-1.3); Eosinophils % 1.5 % (0-4.4); Hematocrit 45.8 % (39.6-49.0); Lymphocytes % 14.8 % (15.3-44.8); MCH 27.8 pg (27.0-35.0); MCV 83.2 fL (80-100); MPV 8.7 fL (7.6-11.3); Monocytes % 8.6 % (3.3-12.3); RBC Red Blood Cell Count 5.51 M/uL (4.33-5.43)
[2018-05-17] MEDS ORDERED: ONDANSETRON 4 MG/2 ML VIAL ONE (12:29)
[2018-05-17] MEDS ORDERED: FENTANYL CITR 100 MCG/2 ML ONE (12:29)
[2018-05-17 12:47] LABS: Albumin 3.6 g/dL (3.4-5.0); Bilirubin Direct 0.1 mg/dL (0-0.2); Bilirubin Total 0.3 mg/dL (0.2-1.0); Potassium 4.2 mmol/L (3.5-5.1); Protein, Total 7.8 g/dL (6.4-8.2)
--- NOTE | 2018-05-17 12:59 | ER ---
Nurse's Notes [facility] Name: Wily Zaldivar Jr Age: 42 yrs Sex: Male : 1975 Arrival Date: 05/17/2018 Time: 10:54 Bed 24 Private MD: Enoc Price Diagnosis: Right Flank Pain Presentation: 05/17 11:09 Presenting complaint: Patient states: "I've had this pain in my right side in my back aj1 and I've had it for a couple days. I've been talking Tylenol and drinking a lot of water, but its just painful and aggravating. I tried to go to work today, but I just couldn't do it. Laying on my left side makes it feel better. My urine has been dark." Reports dysuria, urinary frequency. Denies fever. Transition of care: patient was not received from another setting of care. Onset of symptoms was May 15, 2018. Risk Assessment: Do you want to hurt yourself or someone else? Patient reports no desire to harm self or others. Initial Sepsis Screen: Does the patient meet any 2 criteria? No. Patient's initial sepsis screen is negative. Does the patient have a suspected source of infection? Yes: Dysuria/Frequency/Urgency/UTI. Care prior to arrival: None. 11:09 Method Of Arrival: Ambulatory aj1 11:09 Acuity: WU 3 aj1 Triage Assessment: 11:13 General: Appears in no apparent distress. uncomfortable, Behavior is calm, cooperative, aj1 appropriate for age. Pain: Complains of pain in right low back Pain currently is 10 out of 10 on a pain scale. Neuro: Level of Consciousness is awake, alert, obeys commands. Cardiovascular: Patient's skin is warm and dry. Respiratory: Airway is patent Respiratory effort is even, unlabored, Respiratory pattern is regular, symmetrical. Historical: - Allergies: 11:13 tramadol; aj1 - Home Meds: 11:13 diclofenac oral oral [Active]; Neurontin Oral [Active]; aj1 - PMHx: 11:13 None; aj1 - PSHx: 11:13 back surgery; neck surgery; hand surgery; aj1 - Immunization history:: Flu vaccine is not up to date. - Social history:: Smoking status: Patient uses tobacco products, denies chronic smoking, but will smoke occasionally. - Ebola Screening: : Patient denies travel to an Ebola-affected area in the 21 days before illness onset. Screenin:00 Abuse screen: Denies threats or abuse. Denies injuries from another. Nutritional jl7 screening: No deficits noted. Tuberculosis screening: No symptoms or risk factors identified. Fall Risk IV access (20 points). Total Richard Fall Scale indicates No Risk (0-24 pts). Assessment: 12:31 General: Appears in no apparent distress. uncomfortable, Behavior is calm, cooperative, jl7 appropriate for age. Pain: Complains of pain in right low back Pain currently is 10 out of 10 on a pain scale. Pain began 2-3 days ago. Is continuous. Neuro: Level of Consciousness is awake, alert, obeys commands, Oriented to person, place, time, situation. Cardiovascular: Patient's skin is warm and dry. Respiratory: Airway is patent Respiratory effort is even, unlabored, Respiratory pattern is regular, symmetrical. GI: Abdomen is flat, non-distended, Patient currently denies diarrhea, nausea, vomiting. : Urine is clear, Reports urinary frequency. Derm: Skin is pink, warm \\T\\ dry. 13:00 Reassessment: Patient is alert, oriented x 3, equal unlabored respirations, skin jl7 warm/dry/pink. Patient states symptoms have improved. Vital Signs: 11:13 BP 123 / 84; Pulse 87; Resp 18; Temp 97.8; Pulse Ox 100% on R/A; Weight 72.57 kg (R); aj1 Height 5 ft. 6 in. (167.64 cm) (R); Pain 10/10; 12:00 BP 132 / 105; Pulse 72; Resp 16 S; Pulse Ox 100% on R/A; Pain 10/10; jl7 13:28 BP 117 / 84; Pulse 71; Resp 16; Pulse Ox 100% ; Pain 5/10; jl7 11:13 Body Mass Index 25.82 (72.57 kg, 167.64 cm) aj1 ED Course: 10:54 Patient arrived in ED. sb2 10:55 Enoc Price MD is Private Physician. sb2 11:12 Triage completed. aj1 11:13 Arm band placed on Patient placed in an exam room. aj1 11:15 Rey Ramon PA is PHCP. darling 11:15 Tay Floyd MD is Attending Physician. [facility] 11:15 Angelo Wiley, RN is Primary Nurse. jl7 11:53 CT Stone Protocol In Process Unspecified. EDMS 12:00 Patient has correct armband on for positive identification. Placed in gown. Bed in low jl7 position. Call light in reach. Side rails up X 1. Pulse ox on. NIBP on. Warm blanket given. 12:00 Initial lab(s) drawn, by me, sent to lab. Urine collected: clean catch specimen. jl7 Inserted saline lock: 20 gauge in right antecubital area, using aseptic technique. Blood collected. 12:58 Enoc Price MD is Referral Physician. [facility] 13:28 No provider procedures requiring assistance completed. IV discontinued, intact, jl7 bleeding controlled, No redness/swelling at site. Pressure dressing applied. Administered Medications: 12:15 Drug: NS 0.9% 1000 ml Route: IV; Rate: 1 bolus; Site: right antecubital; jl7 13:29 Follow up: IV Status: Completed infusion jl7 12:23 Drug: Zofran 4 mg Route: IVP; Site: right antecubital; jl7 13:28 Follow up: Response: No adverse reaction jl7 12:25 Drug: fentaNYL (PF) 50 mcg Route: IVP; Site: right antecubital; jl7 12:50 Follow up: Response: No adverse reaction; Pain is decreased jl7 Outcome: 12:58 Discharge ordered by MD. [facility] 13:28 Discharged to home ambulatory. jl 13:28 Condition: stable 13:28 Discharge instructions given to patient, Instructed on discharge instructions, follow up and referral plans. medication usage, Demonstrated understanding of instructions, follow-up care, medications, Prescriptions given X 1. 13:30 Patient left the ED. jl7 Signatures: Dispatcher [employer] EDMS Mily Das, RN RN aj1 Rey Ramon PA PA Angelo Marcano, RN RN jl7 Patricia Joshua sb2
--- NOTE | 2018-05-17 12:59 | EDPHYS ---
Physician Documentation [facility] Name: Wily Zaldivar Jr Age: 42 yrs Sex: Male : 1975 Arrival Date: 05/17/2018 Time: 10:54 Bed 24 Private MD: Enoc Price ED Physician Tay Floyd HPI: 05/17 11:16 This 42 yrs old Male presents to ER via Ambulatory with complaints of Low Back jmm Pain - RT SIDE. 11:16 The patient presents with pain that is acute. The symptoms are located in the right jmm flank. The pain does not radiate. Onset: The symptoms/episode began/occurred gradually, 2 day(s) ago. Modifying factors: The patient symptoms are alleviated by nothing, the patient symptoms are aggravated by any movement. Associated signs and symptoms: Pertinent positives: dysuria, Pertinent negatives: abdominal pain, fever. This is a 42 year old male with no chronic medical conditions that presents to the ED with right flank pain beginning 2 days ago. Patient denies injury, denies fever, complains of dark urination, denies abdominal pain, denies vomiting. . Historical: - Allergies: 11:13 tramadol; aj1 - Home Meds: 11:13 diclofenac oral oral [Active]; Neurontin Oral [Active]; aj1 - PMHx: 11:13 None; aj1 - PSHx: 11:13 back surgery; neck surgery; hand surgery; aj1 - Immunization history:: Flu vaccine is not up to date. - Social history:: Smoking status: Patient uses tobacco products, denies chronic smoking, but will smoke occasionally. - Ebola Screening: : Patient denies travel to an Ebola-affected area in the 21 days before illness onset. ROS: 11:16 Constitutional: Negative for fever, chills, and weight loss, Eyes: Negative for injury, jmm pain, redness, and discharge, Cardiovascular: Negative for chest pain, palpitations, and edema, Respiratory: Negative for shortness of breath, cough, wheezing, and pleuritic chest pain. 11:16 Abdomen/GI: Positive for 11:16 Back: Positive for flank pain, on the right. 11:16 : Positive for urinary symptoms. 11:16 All other systems are negative. Exam: 11:16 Constitutional: This is a well developed, well nourished patient who is awake, alert, jmm and in no acute distress. Head/Face: atraumatic. Eyes: EOMI, no conjunctival erythema appreciated ENT: Moist Mucus Membranes Neck: Trachea midline, Supple Chest/axilla: Normal chest wall appearance and motion. Cardiovascular: Regular rate and rhythm. No edema appreciated Respiratory: Normal respirations, no respiratory distress appreciated 11:16 Abdomen/GI: Inspection: abdomen appears normal, Bowel sounds: normal, Palpation: mild abdominal tenderness, in the posterior aspect of right lateral abdomen. 11:16 Back: CVA tenderness, that is moderate, is noted on the right. 11:16 Musculoskeletal/extremity: ROM: intact in all extremities. 11:16 Skin: Appearance: Color: normal in color. 11:16 Neuro: Orientation: is normal, Mentation: is normal, Memory: is normal, Gait: is steady. 11:16 Psych: Behavior/mood is pleasant, cooperative. Vital Signs: 11:13 BP 123 / 84; Pulse 87; Resp 18; Temp 97.8; Pulse Ox 100% on R/A; Weight 72.57 kg (R); aj1 Height 5 ft. 6 in. (167.64 cm) (R); Pain 10/10; 12:00 BP 132 / 105; Pulse 72; Resp 16 S; Pulse Ox 100% on R/A; Pain 10/10; jl7 13:28 BP 117 / 84; Pulse 71; Resp 16; Pulse Ox 100% ; Pain 5/10; jl7 11:13 Body Mass Index 25.82 (72.57 kg, 167.64 cm) aj1 MDM: 11:16 Patient medically screened. [facility] 11:29 Data reviewed: vital signs, nurses notes. Counseling: I had a detailed discussion with [facility] the patient and/or guardian regarding: the historical points, exam findings, and any diagnostic results supporting the discharge/admit diagnosis, lab results, the need for outpatient follow up, to return to the emergency department if symptoms worsen or persist or if there are any questions or concerns that arise at home. ED course: I discussed the patient with Dr. Merritt whom accepted admission. . 12:56 Data interpreted: Pulse oximetry: on room air is 100 %. Interpretation: normal. [facility] Response to treatment: the patient's symptoms have markedly improved after treatment. ED course: CT negative, labs unremarkable. Patient states symptoms are worsened with movement. Appears most likely musculoskeletal. Patient given return precautions. . 05/17 11:39 Order name: Basic Metabolic Panel; Complete Time: 12:49 [facility] 05/17 11:39 Order name: CBC with Diff; Complete Time: 12:45 [facility] 05/17 11:39 Order name: Creatinine for Radiology; Complete Time: 12:49 [facility] 05/17 11:39 Order name: Hepatic Function; Complete Time: 12:49 [facility] 05/17 11:39 Order name: Lipase; Complete Time: 12:49 [facility] 05/17 11:39 Order name: Urine Dipstick--Ancillary (enter results); Complete Time: 12:15 05/17 11:39 Order name: IV Saline Lock; Complete Time: 12:37 [facility] 05/17 11:39 Order name: Labs collected and sent; Complete Time: 12:37 [facility] 05/17 11:39 Order name: Urine Dipstick-Ancillary (obtain specimen); Complete Time: 12:36 [facility] 05/17 11:39 Order name: CT Stone Protocol; Complete Time: 12:15 [facility] Administered Medications: 12:15 Drug: NS 0.9% 1000 ml Route: IV; Rate: 1 bolus; Site: right antecubital; jl7 13:29 Follow up: IV Status: Completed infusion jl7 12:23 Drug: Zofran 4 mg Route: IVP; Site: right antecubital; jl7 13:28 Follow up: Response: No adverse reaction 7 12:25 Drug: fentaNYL (PF) 50 mcg Route: IVP; Site: right antecubital; jl7 12:50 Follow up: Response: No adverse reaction; Pain is decreased jl7 Disposition: 05/18 05:44 Co-signature as Attending Physician, Tay Floyd MD I agree with the assessment and marilu plan of care. Disposition: 05/17/18 12:58 Discharged to Home. Impression: Right Flank Pain. - Condition is Stable. - Discharge Instructions: Back Pain, Adult. - Prescriptions for orphenadrine citrate 100 mg Oral Tablet Sustained Release - take 1 tablet by ORAL route 2 times per day As needed; 20 tablet. - Medication Reconciliation Form, Thank You Letter, Antibiotic Education, Prescription Opioid Use form. - Follow up: Enoc Price MD; When: 2 - 3 days; Reason: Recheck today's complaints, Continuance of care, Re-evaluation by your physician. Signatures: Dispatcher [employer] Mily Arrington RN RN aj1 Tay Floyd MD MD cha Mickail, Joel, PA PA jmm Leal, Jahala, RN RN jl7 Corrections: (The following items were deleted from the chart) 05/17 13:30 12:58 05/17/2018 12:58 Discharged to Home. Impression: Right Flank Pain. Condition is jl7 Stable. Forms are Medication Reconciliation Form, Thank You Letter, Antibiotic Education, Prescription Opioid Use. Follow up: Enoc Price; When: 2 - 3 days; Reason: Recheck today's complaints, Continuance of care, Re-evaluation by your physician. darling
[2018-05-17 13:41] VITALS: TEMP 97.8; O2SAT 100
[2018-05-17 13:44] VITALS: BP 117/84
== END 2018-05-17 13:30 | disposition home or self-care (01) ==
LOC: ER 10:51
DX: R10.9 Unspecified abdominal pain (principal); Z88.5 Allergy status to narcotic agent; Z72.0 Tobacco use
CPT/HCPCS: 36415; 74176; 76377; 80048; 80076; 81003; 83690; 85025; 96361; 96374; 96375; 99284; J2405; J3010; J7030

== ENCOUNTER 2019-09-03 17:16 | Emergency (ER) | payer OTHER ==
--- OUTSIDE RECORDS SUMMARY | 2019-09-03 17:18 | XMS REPORT ---
:1975 [facility] Address [address] [place] [address] Care Team Providers Name Role Phone Unavailable Unavailable Unavailable Problems This patient has no known problems. Allergies, Adverse Reactions, Alerts This patient has no known allergies or adverse reactions. Medications This patient has no known medications.
[2019-09-03] MEDS ORDERED: DIAZEPAM 5 MG TABLET ONE (18:03)
[2019-09-03] MEDS ORDERED: KETOROLAC 30 MG/ML INJ ONE (18:03)
--- NOTE | 2019-09-03 18:56 | RAD REPORT ---
EXAM DESCRIPTION: CT - Stone Protocol - 09/03/2019 6:50 pm CLINICAL HISTORY: right flank pain COMPARISON: Stone Protocol dated 05/17/2018; Abdomen Pelvis W Contrast dated 11/07/2016 TECHNIQUE: Axial 5 mm thick images were obtained without oral or IV contrast. The [id number]-cc-[id number] span s the entirety of the system including uppermost abdomen and lung bases. All CT scans are performed using dose optimization technique as appropriate and may include automated exposure control or mA/KV adjustment according to patient size. FINDINGS: No hydronephrosis is present and no obstructing ureteral calculi. No suspicious renal mass es. Isodense masses and pyelonephritis are not excluded on a stone protocol CT scan. No urinary bladd er suspicious finding. No significant adrenal finding. Imaged portions of the liver, spleen and pancreas show no suspicious findings on non-contrast imaging . No gallbladder or biliary tree abnormality identified. Gallbladder is contracted. No suspicious bowel findings. Appendix is normal. No active GI process seen. No hernia, mass or bulky lymphadenopathy noted. No free air, free fluid or inflammatory stranding. Th ere is asymmetry of the musculature in the lower abdominal wall similar to comparison. No acute bone finding. Postsurgical changes are present L4-S1. No active process evident. IMPRESSION: Noncontrast CT abdomen and pelvis imaging shows no acute finding. No clear change from 2018. Exam is limited in the absence of oral and IV contrast.
[2019-09-03] MEDS ORDERED: FENTANYL CITR 100 MCG/2 ML ONE (19:01)
--- NOTE | 2019-09-03 19:47 | ER ---
Nurse's Notes [facility] Name: Wily Zaldivar Jr Age: 43 yrs Sex: Male : 1975 Arrival Date: 09/03/2019 Time: 17:19 Bed 19 [facility] MD: Diagnosis: Low back pain Presentation: 09/02 17:28 Chief complaint: Patient states: R mid back pain that began 2-3 days ago. No known ss injury. Coronavirus screen: The patient has NOT traveled to a country currently being monitored by the [facility] within the last 14 days. Proceed with normal triage procedures. Ebola Screen: Patient denies exposure to infectious person. Patient denies travel to an Ebola-affected area in the 21 days before illness onset. Initial Sepsis Screen: Does the patient meet any 2 criteria? HR > 90 bpm. Does the patient have a suspected source of infection? No. Patient's initial sepsis screen is negative. Risk Assessment: Do you want to hurt yourself or someone else? Patient reports no desire to harm self or others. 17:28 Method Of Arrival: Ambulatory ss 17:28 Acuity: WU 4 ss 17:50 Onset of symptoms was September 03, 2019. ca1 Historical: - Allergies: 17:29 tramadol; ss - Home Meds: 17:29 None [Active]; ss - PMHx: 17:29 None; ss - PSHx: 17:29 back surgery; neck surgery; hand surgery; ss - Immunization history:: Adult Immunizations up to date. - Social history:: Smoking status: Patient denies any tobacco usage or history of. Screenin:50 Abuse screen: Denies threats or abuse. Denies injuries from another. Nutritional ca1 screening: No deficits noted. Tuberculosis screening: No symptoms or risk factors identified. Fall Risk None identified. Assessment: 17:50 General: Appears in no apparent distress. comfortable, Behavior is calm, cooperative, ca1 appropriate for age. Pain: Complains of pain in right mid back Pain does not radiate. Pain currently is 7 out of 10 on a pain scale. Quality of pain is described as sharp, Pain began 2-3 days ago. Is continuous. Neuro: Level of Consciousness is awake, alert, obeys commands, Oriented to person, place, time, situation. Cardiovascular: Heart tones S1 S2 present Capillary refill < 3 seconds Patient's skin is warm and dry. Respiratory: Airway is patent Respiratory effort is even, unlabored, Respiratory pattern is regular, symmetrical, Breath sounds are clear bilaterally. GI: Abdomen is flat, non-distended, Bowel sounds present X 4 quads. Abd is soft and non tender X 4 quads. : No signs and/or symptoms were reported regarding the genitourinary system. EENT: No signs and/or symptoms were reported regarding the EENT system. Derm: Skin is intact, is healthy with good turgor, Skin is pink, warm \T\ dry. Musculoskeletal: Circulation, motion, and sensation intact. Capillary refill < 3 seconds. 18:50 Reassessment: Patient appears in no apparent distress at this time. Patient and/or ca1 family updated on plan of care and expected duration. Pain level reassessed. Patient is alert, oriented x 3, equal unlabored respirations, skin warm/dry/pink. 19:50 General: Appears in no apparent distress. Behavior is calm, cooperative, appropriate ea for age. Neuro: Level of Consciousness is awake, alert, obeys commands, Oriented to person, place, time, situation. Respiratory: Airway is patent Respiratory effort is even, unlabored, Respiratory pattern is regular, symmetrical. Derm: Skin is pink, warm \T\ dry. 20:12 Reassessment: Patient and/or family updated on plan of care and expected duration. Pain ea level reassessed. Patient is alert, oriented x 3, equal unlabored respirations, skin warm/dry/pink. Vital Signs: 17:27 BP 129 / 91; Pulse 92; Resp 16; Temp 98.4(O); Pulse Ox 98% on R/A; Weight 72.57 kg; ss Height 5 ft. 6 in. (167.64 cm); Pain 10/10; 18:31 BP 131 / 86; Pulse 90; Resp 17; Pulse Ox 99% on R/A; ca1 19:50 BP 113 / 71; Pulse 80; Resp 18; Pulse Ox 99% ; ea 17:27 Body Mass Index 25.82 (72.57 kg, 167.64 cm) ED Course: 17:19 Patient arrived in ED. mr 17:21 Kanchan Hummel, JESSICA is Primary Nurse. ca1 17:21 Rey Ramon PA is PHCP. jmm 17:21 Tay Floyd MD is Attending Physician. m 17:27 Arm band placed on right wrist. ss 17:28 Triage completed. ss 17:50 Patient has correct armband on for positive identification. Bed in low position. Call ca1 light in reach. Side rails up X 1. Pulse ox on. NIBP on. 17:50 No provider procedures requiring assistance completed. Patient did not have IV access ca1 during this emergency room visit. 18:51 CT Stone Protocol In Process Unspecified. EDMS Administered Medications: 18:02 Drug: Valium 5 mg Route: PO; ca1 18:40 Follow up: Response: No adverse reaction; Pain is unchanged, physician notified ca1 18:02 Drug: Ketorolac 30 mg Route: IM; Site: right deltoid; ca1 18:40 Follow up: Response: No adverse reaction; Pain is unchanged, physician notified ca1 18:42 Drug: fentaNYL (PF) 50 mcg {Note: to be given IM per Tristen, MARIA LUZ. Given L deltoim IM. ca1 RASS 0.} Route: IVP; Site: Other; 19:15 Follow up: Response: No adverse reaction ea Outcome: 19:46 Discharge ordered by . darling 20:13 Discharged to home ambulatory, with family. ea 20:13 Condition: stable 20:13 Discharge instructions given to patient, Instructed on discharge instructions, Demonstrated understanding of instructions, follow-up care, Prescriptions given X 2. 20:13 Patient left the ED. ea Signatures: Dispatcher [employer] EDMS Rey Ramon PA PA jmm Rivera, Mary mr Shivani Chacko RN RN ss Antunez, Elena, RN RN Kanchan Ruiz RN RN ca1
--- NOTE | 2019-09-03 19:47 | EDPHYS ---
Physician Documentation [facility] Name: Wily Zaldivar Jr Age: 43 yrs Sex: Male : 1975 Arrival Date: 09/03/2019 Time: 17:19 Bed 19 Private MD: ED Physician Tay Floyd HPI: 09/02 18:32 This 43 yrs old Male presents to ER via Ambulatory with complaints of Back jmm Pain. 18:32 The patient presents with pain that is acute. Onset: The symptoms/episode jmm began/occurred gradually, 2 day(s) ago. 18:32 The pain does not radiate. Associated signs and symptoms: The patient has no apparent jmm associated signs or symptoms, Pertinent negatives: vomiting. This is a 43 year old male that presents to the ED with complaints of right flank beginning 3 days ago. Patient denies fever or known injury. Denies hematuria, but complains of some dysuria. . 18:35 Modifying factors: The patient symptoms are alleviated by remaining still, the patient jmm symptoms are aggravated by movement. Historical: - Allergies: 17:29 tramadol; ss - Home Meds: 17:29 None [Active]; ss - PMHx: 17:29 None; ss - PSHx: 17:29 back surgery; neck surgery; hand surgery; ss - Immunization history:: Adult Immunizations up to date. - Social history:: Smoking status: Patient denies any tobacco usage or history of. ROS: 18:35 Constitutional: Negative for fever, chills, and weight loss, Cardiovascular: Negative jmm for chest pain, palpitations, and edema, Respiratory: Negative for shortness of breath, cough, wheezing, and pleuritic chest pain. 18:35 Back: Positive for pain with movement. 18:35 : Positive for urinary symptoms. 18:35 All other systems are negative. Exam: 18:35 Constitutional: This is a well developed, well nourished patient who is awake, alert, jmm and in no acute distress. Head/Face: atraumatic. Eyes: EOMI, no conjunctival erythema appreciated ENT: Moist Mucus Membranes Neck: Trachea midline, Supple Chest/axilla: Normal chest wall appearance and motion. Cardiovascular: Regular rate and rhythm. No edema appreciated Respiratory: Normal respirations, no respiratory distress appreciated Abdomen/GI: Non distended, soft 18:35 Skin: General appearance color normal MS/ Extremity: Moves all extremities, no obvious deformities appreciated, no edema noted to the lower extremities Neuro: Awake and alert, normal gait Psych: Behavior is normal, Mood is normal, Patient is cooperative and pleasant 18:35 Back: pain, that is moderate, of the right mid back, CVA tenderness, is absent, vertebral tenderness, is not appreciated. Vital Signs: 17:27 BP 129 / 91; Pulse 92; Resp 16; Temp 98.4(O); Pulse Ox 98% on R/A; Weight 72.57 kg; ss Height 5 ft. 6 in. (167.64 cm); Pain 10/10; 18:31 BP 131 / 86; Pulse 90; Resp 17; Pulse Ox 99% on R/A; ca1 19:50 BP 113 / 71; Pulse 80; Resp 18; Pulse Ox 99% ; ea 17:27 Body Mass Index 25.82 (72.57 kg, 167.64 cm) ss MDM: 17:24 Patient medically screened. marilu 19:45 Data reviewed: vital signs, nurses notes. Counseling: I had a detailed discussion with darling the patient and/or guardian regarding: the historical points, exam findings, and any diagnostic results supporting the discharge/admit diagnosis, radiology results, the need for outpatient follow up, to return to the emergency department if symptoms worsen or persist or if there are any questions or concerns that arise at home. ED course: Ct negative for an acute process. I do not suspect cord compression, spinal abscess or cauda equina. Patient advised to follow up with his pain management physician for reevaluation. . 09/02 19:51 Order name: Urine Dipstick--Ancillary (enter results); Complete Time: 20:09 [facility] 09/02 19:51 Order name: Urine --Ancillary (enter results); Complete Time: 20:09 [facility] 09/02 17:39 Order name: CT Stone Protocol; Complete Time: 18:59 [facility] 09/02 18:38 Order name: Urine Dipstick-Ancillary (obtain specimen); Complete Time: 19:59 [facility] Administered Medications: 18:02 Drug: Valium 5 mg Route: PO; ca1 18:40 Follow up: Response: No adverse reaction; Pain is unchanged, physician notified ca1 18:02 Drug: Ketorolac 30 mg Route: IM; Site: right deltoid; ca1 18:40 Follow up: Response: No adverse reaction; Pain is unchanged, physician notified ca1 18:42 Drug: fentaNYL (PF) 50 mcg {Note: to be given IM per MARIA LUZ Ramon. Given L deltoim IM. ca1 RASS 0.} Route: IVP; Site: Other; 19:15 Follow up: Response: No adverse reaction ea Disposition: 09/03 10:33 Co-signature as Attending Physician, Tay Floyd MD I agree with the assessment and marilu plan of care. Disposition: 09/03/19 19:46 Discharged to Home. Impression: Low back pain. - Condition is Stable. - Discharge Instructions: Back Pain, Adult. - Prescriptions for Prednisone 20 mg Oral Tablet - take 3 tablet by ORAL route once daily for 5 days; 15 tablet. Zanaflex 4 mg Oral Tablet - take 1 tablet by ORAL route every 8 hours As needed; 20 tablet. - Medication Reconciliation Form, Thank You Letter, Antibiotic Education, Prescription Opioid Use form. - Follow up: Private Physician; When: 2 - 3 days; Reason: Recheck today's complaints, Continuance of care, Re-evaluation by your physician. Signatures: Dispatcher [employer] Tay Harris MD MD cha Mickail, Joel, PA PA jmm Smirch, Shelby, RN RN Rosi Carlson, Kanchan Ordaz RN, ea RN RN ca1 Corrections: (The following items were deleted from the chart) 09/02 20:13 19:46 09/03/2019 19:46 Discharged to Home. Impression: Low back pain. Condition is ea Stable. Forms are Medication Reconciliation Form, Thank You Letter, Antibiotic Education, Prescription Opioid Use. Follow up: Private Physician; When: 2 - 3 days; Reason: Recheck today's complaints, Continuance of care, Re-evaluation by your physician. darling
[2019-09-03 20:02] LABS: Urine Blood NEGATIVE (NEG); Urine Glucose NEGATIVE (NEG); Urine Protein NEGATIVE (NEG)
[2019-09-03 21:11] VITALS: BP 141/70; O2SAT 99
== END 2019-09-03 20:13 | disposition home or self-care (01) ==
LOC: ER 17:16
DX: M54.5 Low back pain (principal); Z88.6 Allergy status to analgesic agent
CPT/HCPCS: 81025; 81003; 76377; 74176; 96372; 96374; 99284; J3010

== ENCOUNTER 2021-01-03 02:29 | Emergency (ER) | payer OTHER ==
[2021-01-03] MEDS ORDERED: KETOROLAC 30 MG/ML INJ ONE (03:55)
--- NOTE | 2021-01-03 04:49 | ER ---
Nurse's Notes [facility] Name: Wily Zaldivar Jr Age: 45 yrs Sex: Male : 1975 Arrival Date: 01/03/2021 Time: 02:33 Bed 24 Private MD: Diagnosis: Other cervical disc degeneration;Cervical disc disorder with radiculopathy, unspecified cervical region Presentation: 01/03 03:09 Chief complaint: Patient states: I am having shoulder spasms that have been going on jb4 for the past couple of days. They have progressively been getting worse. I tried nsaids and tylenol while alternating hot and cold packs, nothing has helped. i have not done anything to injuremyself to the best of my knowledge. Coronavirus screen: Client denies travel out of the [place] in the last 14 days. At this time, the client does not indicate any symptoms associated with coronavirus-19. Ebola Screen: No symptoms or risks identified at this time. Initial Sepsis Screen: Does the patient meet any 2 criteria? No. Patient's initial sepsis screen is negative. Does the patient have a suspected source of infection? No. Patient's initial sepsis screen is negative. Risk Assessment: Do you want to hurt yourself or someone else? Patient reports no desire to harm self or others. Onset of symptoms was January 01, 2021. Transition of care: patient was not received from another setting of care. 03:09 Method Of Arrival: Ambulatory jb4 03:09 Acuity: WU 4 jb4 Historical: - Allergies: 03:13 tramadol; jb4 - Home Meds: 03:13 None [Active]; jb4 - PMHx: 03:13 None; jb4 - PSHx: 03:13 back; neck; R hand; jb4 - Immunization history:: Adult Immunizations up to date. - Social history:: Smoking status: Patient reports the use of cigarette tobacco products, denies chronic smoking, but will smoke occasionally, Patient uses alcohol, occasionally. Patient/guardian denies using street drugs. Screenin:15 Abuse screen: Denies threats or abuse. Nutritional screening: No deficits noted. jb4 Tuberculosis screening: No symptoms or risk factors identified. Fall Risk None identified. Assessment: 03:15 General: Appears in no apparent distress. uncomfortable, Behavior is calm, cooperative. jb4 Pain: Complains of pain in left scapular area Pain radiates to left arm Pain currently is 10 out of 10 on a pain scale. Neuro: Level of Consciousness is awake, alert, obeys commands, Oriented to person, place, time, situation. Cardiovascular: Patient's skin is warm and dry. Respiratory: Airway is patent Respiratory effort is even, unlabored, Respiratory pattern is regular, symmetrical. GI: No signs and/or symptoms were reported involving the gastrointestinal system. : No signs and/or symptoms were reported regarding the genitourinary system. EENT: No signs and/or symptoms were reported regarding the EENT system. Derm: Skin is intact, Skin is pink, warm \T\ dry. Musculoskeletal: Circulation, motion, and sensation intact. Range of motion: intact in all extremities, Reports pain in left scapular area. 04:59 Reassessment: Patient appears in no apparent distress at this time. Patient and/or jb4 family updated on plan of care and expected duration. Pain level reassessed. Patient is alert, oriented x 3, equal unlabored respirations, skin warm/dry/pink. Vital Signs: 03:09 BP 133 / 96; Pulse 89; Resp 16; Temp 98.6(O); Pulse Ox 100% on R/A; Weight 71.21 kg jb4 (R); Height 5 ft. 6 in. (167.64 cm); Pain 10/10; 04:59 BP 130 / 94; Pulse 78; Resp 16; Pulse Ox 98% on R/A; jb4 03:09 Body Mass Index 25.34 (71.21 kg, 167.64 cm) jb4 ED Course: 02:33 Patient arrived in ED. wm 03:04 Hossein Levine MD is Attending Physician. mh7 03:09 Sidney Andre, RN is Primary Nurse. jb4 03:13 Triage completed. jb4 03:13 Arm band placed on right wrist. jb4 03:15 Patient has correct armband on for positive identification. Placed in gown. Bed in low jb4 position. Call light in reach. Side rails up X 1. Pulse ox on. NIBP on. 03:57 CT C Spine In Process Unspecified. EDMS 04:59 No provider procedures requiring assistance completed. Patient did not have IV access jb4 during this emergency room visit. Administered Medications: 03:36 Drug: Ketorolac 60 mg Route: IM; Site: right gluteus; jb4 05:05 Follow up: Response: No adverse reaction; Marked relief of symptoms; Pain is decreased jb4 Outcome: 04:49 Discharge ordered by . мария 04:59 Discharged to home ambulatory. jb4 04:59 Condition: stable 04:59 Discharge instructions given to patient, Instructed on discharge instructions, follow up and referral plans. no drinking with medication, medication usage, Demonstrated understanding of instructions, follow-up care, medications, Prescriptions given X 2. 05:05 Patient left the ED. jb4 Signatures: Dispatcher [employer] EDSidney Wilkerson RN RN jb4 Hossein Levine MD MD Meredith Moyer
--- NOTE | 2021-01-03 04:50 | EDPHYS ---
Physician Documentation [facility] Name: Wily Zaldivar Jr Age: 45 yrs Sex: Male : 1975 Arrival Date: 01/03/2021 Time: 02:33 Bed 24 Private MD: ED Physician Hossein Levine HPI: 01/03 03:44 This 45 yrs old Male presents to ER via Ambulatory with complaints of Shoulder mh7 Pain - SPASMS UP INTO HEAD. 03:44 The patient or guardian complains of pain, that is acute. left trapezius and left mh7 posterior neck. Context: The problem was sustained at home, resulted from an unknown reason, The patient experiences decreased range of motion, when attempts to raise arm, The patient reports no obvious deformity. Onset: The symptoms/episode began/occurred 3 day(s) ago. Modifying factors: the symptoms are alleviated by nothing. The symptoms are aggravated by movement, rotation of arm. Associated signs and symptoms: Pertinent positives: neck pain, Pertinent negatives: abdominal pain, chest pain, diaphoresis, dyspnea, shortness of breath, tingling. Severity of symptoms: At their worst the symptoms were moderate, 2 day(s) ago, in the emergency department the symptoms are unchanged. Treatment prior to arrival includes: icing the affected extremity. Historical: - Allergies: 03:13 tramadol; jb4 - Home Meds: 03:13 None [Active]; jb4 - PMHx: 03:13 None; jb4 - PSHx: 03:13 back; neck; R hand; jb4 - Immunization history:: Adult Immunizations up to date. - Social history:: Smoking status: Patient reports the use of cigarette tobacco products, denies chronic smoking, but will smoke occasionally, Patient uses alcohol, occasionally. Patient/guardian denies using street drugs. ROS: 03:44 Constitutional: Negative for fever, chills, and weight loss, Eyes: Negative for injury, mh7 pain, redness, and discharge, ENT: Negative for injury, pain, and discharge, Cardiovascular: Negative for chest pain, palpitations, and edema, Respiratory: Negative for shortness of breath, cough, wheezing, and pleuritic chest pain, Abdomen/GI: Negative for abdominal pain, nausea, vomiting, diarrhea, and constipation, : Negative for injury, bleeding, discharge, and swelling, Skin: Negative for injury, rash, and discoloration, Neuro: Negative for headache, weakness, numbness, tingling, and seizure, Psych: Negative for depression, anxiety, suicide ideation, homicidal ideation, and hallucinations, Allergy/Immunology: Negative for hives, rash, and allergies, Endocrine: Negative for neck swelling, polydipsia, polyuria, polyphagia, and marked weight changes, Hematologic/Lymphatic: Negative for swollen nodes, abnormal bleeding, and unusual bruising. Exam: 03:44 Constitutional: This is a well developed, well nourished patient who is awake, alert, mh7 and in no acute distress. Head/Face: Normocephalic, atraumatic. Eyes: Pupils equal round and reactive to light, extra-ocular motions intact. Lids and lashes normal. Conjunctiva and sclera are non-icteric and not injected. Cornea within normal limits. Periorbital areas with no swelling, redness, or edema. 03:44 Chest/axilla: Normal chest wall appearance and motion. Nontender with no deformity. No lesions are appreciated. Cardiovascular: Regular rate and rhythm with a normal S1 and S2. No gallops, murmurs, or rubs. Normal PMI, no JVD. No pulse deficits. Respiratory: Lungs have equal breath sounds bilaterally, clear to auscultation and percussion. No rales, rhonchi or wheezes noted. No increased work of breathing, no retractions or nasal flaring. Abdomen/GI: Soft, non-tender, with normal bowel sounds. No distension or tympany. No guarding or rebound. No evidence of tenderness throughout. Back: No spinal tenderness. No costovertebral tenderness. Full range of motion. Skin: Warm, dry with normal turgor. Normal color with no rashes, no lesions, and no evidence of cellulitis. 03:44 Neuro: Awake and alert, GCS 15, oriented to person, place, time, and situation. Cranial nerves II-XII grossly intact. Motor strength 5/5 in all extremities. Sensory grossly intact. Cerebellar exam normal. Normal gait. Psych: Awake, alert, with orientation to person, place and time. Behavior, mood, and affect are within normal limits. 03:44 Neck: External neck: tenderness, that is moderate, of the left mid cervical area and left trapezius, C-spine: appears grossly normal, no vertebral tenderness, no crepitus, Thyroid: appears normal, Trachea: is midline with no obvious abnormalities, ROM/movement: pain, that is moderate, with rotation to the left, limited range of motion, that is mild, when rotating to the left, Meningeal signs: are not present, nuchal rigidity, is not appreciated, Lymph nodes: no appreciated lymphadenopathy. 03:44 Musculoskeletal/extremity: Extremities: noted in the left trapezius: tenderness, ROM: intact in all extremities, Circulation is intact in all extremities. Sensation intact. Compartment Syndrome exam of affected extremity: is normal. no numbness, no tingling, no sensation deficit, no palor, no weak pulses, Joints: All joints appear normal with full range of motion. Weight bearing: able to fully bear weight, without difficulty, Tendon exam: specific tendon testing normal through active and passive range of motion Vital Signs: 03:09 BP 133 / 96; Pulse 89; Resp 16; Temp 98.6(O); Pulse Ox 100% on R/A; Weight 71.21 kg jb4 (R); Height 5 ft. 6 in. (167.64 cm); Pain 10/10; 04:59 BP 130 / 94; Pulse 78; Resp 16; Pulse Ox 98% on R/A; jb4 03:09 Body Mass Index 25.34 (71.21 kg, 167.64 cm) jb4 MDM: 04:46 Differential diagnosis: tendonitis, cervical radiculopathy, Musculoskeletal pain. Data [facility] reviewed: vital signs, nurses notes, radiologic studies, CT scan. Counseling: I had a detailed discussion with the patient and/or guardian regarding: the historical points, exam findings, and any diagnostic results supporting the discharge/admit diagnosis, the presence of at least one elevated blood pressure reading (>120/80) during this emergency department visit, radiology results, the need for outpatient follow up, to return to the emergency department if symptoms worsen or persist or if there are any questions or concerns that arise at home. Response to treatment: the patient's symptoms have markedly improved after treatment. 04:49 Patient medically screened. 7 01/03 03:25 Order name: CT C Spine [facility] Administered Medications: 03:36 Drug: Ketorolac 60 mg Route: IM; Site: right gluteus; jb4 05:05 Follow up: Response: No adverse reaction; Marked relief of symptoms; Pain is decreased jb4 Disposition Summary: 01/03/21 04:49 Discharge Ordered Location: Home [facility] Problem: an acute exacerbation [facility] Symptoms: have improved [facility] Condition: Stable [facility] Diagnosis - Other cervical disc degeneration 7 - Cervical disc disorder with radiculopathy, unspecified cervical region [facility] Followup: [facility] - With: Private Physician - When: 1 - 2 days - Reason: Worsening of condition, Recheck today's complaints, Continuance of care, Re-evaluation by your physician Discharge Instructions: - Discharge Summary Sheet [facility] - Degenerative Disk Disease [facility] - Cervical Radiculopathy, [id number] [facility] Forms: - Medication Reconciliation Form [facility] - Thank You Letter [facility] - Antibiotic Education [facility] - Prescription Opioid Use [facility] Prescriptions: - ketorolac 10 mg Oral tablet - take 1 tablet by ORAL route every 6 hours As needed not to exceed 40 mg in mh7 24hrs; 12 tablet; Refills: 0, Product Selection Permitted - methocarbamol 500 mg Oral Tablet - take 2 tablets by ORAL route every 6 hours; 30 tablet; Refills: 0, Product [facility] Selection Permitted Signatures: Dispatcher [employer] Sidney Bae RN RN jb4 Hossein Levine MD MD [facility]
[2021-01-03 05:13] VITALS: TEMP 98.6
[2021-01-03 05:15] VITALS: BP 130/94; O2SAT 98
--- NOTE | 2021-01-03 10:52 | RAD REPORT ---
EXAM DESCRIPTION: CT - C Spine Wo Con - 01/03/2021 6:39 am CLINICAL HISTORY: The patient is 45 years old and is Male; Pain;Radiculopathy TECHNIQUE: Axial computed tomography images of the cervical spine without intravenous contrast. Sa gittal and coronal reformatted images were created and reviewed. This CT exam was performed using o ne or more of the following dose reduction techniques: automated exposure control, adjustment of th e mA and/or kV according to patient size, and/or use of iterative reconstruction technique. COMPARISON: No relevant prior studies available. FINDINGS: Vertebrae: No acute fracture. Straightening of the normal lordotic curvature of the spin e. No traumatic malalignment. Discs/spinal canal/neural foramina: Degenerative disc disease C3-4 and C4-5. No significant neur al foraminal narrowing. No spinal canal stenosis. Soft tissues: Unremarkable. Sinuses: Mucous retention cyst left maxillary sinus. Mastoid air cells: No significant mastoid fluid. Pleural space: No apical pneumothorax. Tubes, lines and devices: Previous fusion C5-6 with interbody device C6-7. IMPRESSION: Previous fusion C5-6 with interbody device C6-7. Degenerative disc disease C3-4 and C4-5 Electronically signed by: Kacie Hopson MD 01/03/2021 4:20 AM CDT Due to temporary technical issues with the PACS/Fluency reporting system, reports are being signed by the in house radiologist without review as a courtesy to ensure prompt reporting. The interpreting r adiologist is fully responsible for the content of the report.
== END 2021-01-03 05:05 | disposition home or self-care (01) ==
LOC: ER 02:29
DX: M50.10 Cervical disc disorder with radiculopathy, unspecified cervical region (principal); F17.210 Nicotine dependence, cigarettes, uncomplicated
CPT/HCPCS: 72125; 96372; 99284